=== PATIENT | female | born 1945 | race Caucasian/White ===

== ENCOUNTER → 2016-08-10 | Outpatient (CLI) | payer MEDICARE, OTHER | LOC: RAD 14:59 | PROVIDERS: ATTEND Physician Assistant | DX: R05 Cough (principal) | CPT/HCPCS: 71020 ==

== ENCOUNTER → 2016-11-20 | Outpatient (CLI) | payer MEDICARE, OTHER | LOC: OD 14:58 | PROVIDERS: ATTEND Physician Assistant | DX: M54.2 Cervicalgia (principal); M47.892 Other spondylosis, cervical region | CPT/HCPCS: 72050 ==

== ENCOUNTER 2016-11-30 18:28 | Inpatient (IN) | payer MEDICARE, OTHER ==
--- NOTE | 2016-11-30 18:40 | ER Document Report ---
ED GI/ - General Stated Complaint: ABDOMINAL PAIN Time seen by provider: 18:40 Mode of Arrival: Wheelchair Information source: Patient, Relative TRAVEL OUTSIDE OF THE [place] IN LAST 30 DAYS: No - HPI Patient complains to provider of: Abdominal pain Onset: Other - 4 days Timing/Duration: Persistent, Worse Quality of pain: Fullness, Pressure, Sharp, Stabbing Severity at maximum: Severe Severity in ED: Severe Pain Level: 5 Location: RLQ Associated symptoms: Nausea. denies: Fever, Vomiting Exacerbated by: Movement Relieved by: Denies Similar symptoms previously: No Recently seen / treated by doctor: Yes Notes: 11/30/16 19:01 Patient is a 71-year-old female who presents to the emergency room for complaints of right lower quadrant pain 4 days, she was actually seen as an outpatient by her primary care provider and sent for a CT scan of the abdomen and pelvis today, which shows acute appendicitis with perforation, patient was called and told to come to the emergency room for further care, she denies any vomiting, states she's had no appetite and has nothing to vomit up, denies any surgeries on the abdomen previously, states she did take a couple sips of water a proximally 15 minutes prior to coming to the emergency room Past Medical History - General Information source: Patient - Social History Smoking Status: Current Every Day Smoker Family History: Reviewed & Not Pertinent Review of Systems - Review of Systems Constitutional: No symptoms reported EENT: No symptoms reported Cardiovascular: No symptoms reported Respiratory: No symptoms reported Gastrointestinal: See HPI Genitourinary: No symptoms reported Female Genitourinary: No symptoms reported Musculoskeletal: No symptoms reported Skin: No symptoms reported Hematologic/Lymphatic: No symptoms reported Neurological/Psychological: No symptoms reported -: Yes All other systems reviewed and negative Physical Exam - General General appearance: Alert In distress: Mild - Appears in pain, appears ill - HEENT Head: Normocephalic, Atraumatic Eyes: Pale conjunctiva Extraocular movements intact: Yes Eyelashes: Normal Pupils: PERRL Mucous membranes: Dry Pharynx: Normal Neck: Normal - Respiratory Respiratory status: No respiratory distress Chest status: Nontender Breath sounds: Normal Chest palpation: Normal - Cardiovascular Rhythm: Regular Heart sounds: Normal auscultation Murmur: No - Abdominal Inspection: Normal Distension: No distension Bowel sounds: Normal Tenderness: Tender - Right lower quadrant, positive peritoneal signs, positive guarding Organomegaly: No organomegaly - Back Back: Normal, Nontender - Extremities General upper extremity: Normal inspection, Nontender, Normal color, Normal ROM , Normal temperature General lower extremity: Normal inspection, Nontender, Normal color, Normal ROM , Normal temperature, Normal weight bearing. No: Melissa's sign - Neurological Neuro grossly intact: Yes Cognition: Normal Orientation: AAOx4 [place] Coma Scale Eye Opening: Spontaneous Kyle Coma Scale Verbal: Oriented [place] Coma Scale Motor: Obeys Commands Kyle Coma Scale Total: 15 Speech: Normal Motor strength normal: LUE, RUE, LLE, RLE Sensory: Normal - Psychological Associated symptoms: Normal affect, Normal mood - Skin Skin Temperature: Warm Skin Moisture: Dry Skin Color: Pale Course - Re-evaluation Re-evalutation: 11/30/16 19:[address] scan shows acute appendicitis with perforation and periappendiceal abscess formation, patient was discussed with the surgeon who will admit for further evaluation and treatment, requested patient be started on Invanz, be kept nothing by mouth, this plan was discussed with patient and several family members who acknowledge understanding and agreement - Laboratory Result Diagrams: 11/30/16 18:44 11/30/16 18:44 - Diagnostic Test Radiology reviewed: Image reviewed, Reports reviewed - EKG Interpretation by Me EKG shows normal: Sinus rhythm Rate: Normal Rhythm: NSR - Consults Dr Swain Time consulted: 18:40 Reason for consultation: 11/30/16 18:40 Ruptured appendicitis Consulted provider: will come to ER - Transfer of Care Care transferred to following provider: Dr. Swain Discharge - Discharge Clinical Impression: Acute appendicitis with perforation and peritoneal abscess Condition: Fair Disposition: ADMITTED INPATIENT Admitting Provider: Surgicalist Unit Admitted: Surgical Floor
[2016-11-30] MEDS ORDERED: PIPERACILLIN/TAZOBACTAM 4.5 GM VIAL IV ONE (18:43)
[2016-11-30] MEDS ORDERED: MORPHINE SULFATE 10 MG/ML INJ IV ONE (18:43)
[2016-11-30] MEDS ORDERED: NORMAL SALINE 1000 ML 1,000 ML IV PRN (18:43)
[2016-11-30] MEDS ORDERED: ONDANSETRON HCL INJ/PF 4 MG/2 ML SDV IV ONE (18:43)
[2016-11-30] MEDS ORDERED: ERTAPENEM SODIUM INJ 1 GM VIAL IV ONE (18:52)
[2016-11-30 19:32] LABS: PROTHROMBIN TIME 17.2 SEC (11.4-15.4)
[2016-11-30 19:33] LABS: PARTIAL THROMBOPLASTIN TIME 38.8 SEC (23.5-35.8)
[2016-11-30 19:37] LABS: HEMATOCRIT 42.7 % (36.0-47.0); HEMOGLOBIN 14.8 g/dL (12.0-15.5); HGB HCT DIFFERENCE 1.7; MEAN CORPUSCULAR HEMOGLOBIN 31.7 pg (27.0-33.4); MEAN CORPUSCULAR HGB CONC 34.8 g/dL (32.0-36.0); MEAN CORPUSCULAR VOLUME 91 fl (80-97); RED BLOOD COUNT 4.69 10^6/uL (3.72-5.28)
[2016-11-30 19:58] LABS: BAND NEUTROPHILS % (MANUAL) 15 % (3-5); BASOPHILS % (MANUAL) 0 % (0-2); EOSINOPHILS % (MANUAL) 0 % (0-6); LYMPHOCYTES % (MANUAL) 6 % (13-45); TOTAL CELLS COUNTED 100
[2016-11-30 19:59] LABS: TOXIC GRANULATION SLIGHT
[2016-11-30 20:00] LABS: ANISOCYTOSIS SLIGHT; PLATELET CLUMPS PRESENT; POLYCHROMASIA SLIGHT
[2016-11-30] MEDS ORDERED: BUPIVACAINE HCL 0.25 % INJ/PF (2.5 MG/1 ML) 30 ML VIAL ONE (20:37)
[2016-11-30] MEDS ORDERED: FENTANYL CITRATE INJ/PF 100 MCG/2 ML AMPUL ONE ×2 (21:39→21:40)
[2016-11-30] MEDS ORDERED: MIDAZOLAM 2 MG/2 ML INJ ONE (21:40)
[2016-11-30] MEDS ORDERED: EPHEDRINE SULFATE INJ 50 MG/1 ML AMPULE ONE (21:40)
[2016-11-30] MEDS ORDERED: PROPOFOL INJ 200 MG/20 ML VIAL IV ONE (21:41)
[2016-11-30] MEDS ORDERED: ACETAMINOPHEN 100 ML IV ONE (21:41)
[2016-11-30] MEDS ORDERED: MORPHINE SULFATE 10 MG/ML INJ ONE (21:41)
[2016-11-30 22:01] LABS: ALANINE AMINOTRANSFERASE 22 U/L (9-52); ALBUMIN 2.9 g/dL (3.5-5.0); ALKALINE PHOSPHATASE 56 U/L (38-126); ANION GAP 18 (5-19); ASPARTATE AMINO TRANSFERASE 22 U/L (14-36); BILIRUBIN,DIRECT 0.3 mg/dL (0.0-0.4); BILIRUBIN,TOTAL 0.4 mg/dL (0.2-1.3); BLOOD UREA NITROGEN 82 mg/dL (7-20); CALCIUM 9.5 mg/dL (8.4-10.2); CARBON DIOXIDE 22 mmol/L (22-30); CHLORIDE 94 mmol/L (98-107); CREATININE RESULT 2.19 mg/dL (0.52-1.25); GLUCOSE 98 mg/dL (75-110); LIPASE 158.2 U/L (23-300); POTASSIUM 3.1 mmol/L (3.6-5.0); SODIUM 133.5 mmol/L (137-145); TOTAL PROTEIN 5.8 g/dL (6.3-8.2)
[2016-11-30] MEDS ORDERED: OXYCODONE-ACETAMINOPHEN 5-325 MG TABLET PO PRN ×2 (22:37)
[2016-11-30] MEDS ORDERED: DIPHENHYDRAMINE HCL 50 MG/ML VIAL IV PRN (22:37)
[2016-11-30] MEDS ORDERED: FENTANYL CITRATE INJ/PF 100 MCG/2 ML AMPUL IV PRN ×2 (22:37)
[2016-11-30] MEDS ORDERED: MORPHINE SULFATE 10 MG/ML INJ IV PRN (22:37)
[2016-11-30] MEDS ORDERED: MEPERIDINE HCL/PF INJ 25 MG/1 ML DISP.SYRIN IV PRN (22:37)
[2016-11-30] MEDS ORDERED: BUPIVACAINE HCL 0.25 % INJ/PF (2.5 MG/1 ML) 30 ML VIAL INJ ONE ×2 (22:46)
[2016-12-01] MEDS ORDERED: ALBUTEROL SULFATE 0.083% NEB 2.5 MG/3 ML AMPUL NEB PRN (00:53)
[2016-12-01] MEDS ORDERED: DEXTROSE 40% GEL 15 GM TUBE PO PRN ×2 (00:53)
[2016-12-01] MEDS ORDERED: GLUCAGON,HUMAN RECOMB 1 MG INJ SUBCUT PRN (00:53)
[2016-12-01] MEDS ORDERED: DEXTROSE 50%-WATER 25 GM/50 ML DISP.SYRIN IV PRN ×2 (00:53)
[2016-12-01] MEDS ORDERED: PHARMACY COMMUNICATION ORDER MC NR (01:00)
[2016-12-01] MEDS ORDERED: DEXTROSE 5%-WATER 250 ML with NOREPINEPHRINE BITARTRATE 4 MG IV PRN ×2 (01:50)
[2016-12-01] MEDS ORDERED: NOREPINEPHRINE BITARTRATE INJ/PF 4 MG/4 ML SDV IV ONE (02:19)
[2016-12-01] MEDS: NORMAL SALINE 1000 ML 1,000 ML IV PRN ×2 (02:51→11:20)
[2016-12-01 06:00] LABS: HEMATOCRIT 39.2 % (36.0-47.0); HEMOGLOBIN 13.5 g/dL (12.0-15.5); HGB HCT DIFFERENCE 1.3; MEAN CORPUSCULAR HEMOGLOBIN 31.8 pg (27.0-33.4); MEAN CORPUSCULAR HGB CONC 34.5 g/dL (32.0-36.0); MEAN CORPUSCULAR VOLUME 92 fl (80-97); RED BLOOD COUNT 4.25 10^6/uL (3.72-5.28); RED CELL DISTRIBUTION WIDTH 14.3 % (11.5-14.0); WHITE BLOOD COUNT 9.2 10^3/uL (4.0-10.5)
[2016-12-01 06:22] LABS: BAND NEUTROPHILS % (MANUAL) 14 % (3-5); BASOPHILS % (MANUAL) 0 % (0-2); EOSINOPHILS % (MANUAL) 0 % (0-6); LYMPHOCYTES % (MANUAL) 2 % (13-45); NUCLEATED RED BLOOD CELLS 1 /100 WBC (0); TOTAL CELLS COUNTED 100
[2016-12-01 06:23] LABS: ANISOCYTOSIS SLIGHT; POLYCHROMASIA SLIGHT; TOXIC GRANULATION 1+; TOXIC VACUOLATION PRESENT
--- NOTE | 2016-12-01 07:32 | PDOC PROGRESS REPORT ---
Subjective Progress Note for:: 12/01/16 Subjective:: Patient appears very comfortable and is alert. States that her abdominal pain is markedly improved from preoperatively. Physical Exam Vital Signs: Temp Pulse Resp BP Pulse Ox 97.6 F 65 10 L 97/59 L 98 12/01/16 05:19 12/01/16 03:52 12/01/16 06:37 12/01/16 06:37 12/01/16 06:37 Intake & Output 11/30/16 12/01/16 12/02/16 06:59 06:59 06:59 Output Total 305 Balance -305 Weight 52.2 kg General appearance: PRESENT: no acute distress, cooperative Respiratory exam: PRESENT: clear to auscultation eulogio Cardiovascular exam: PRESENT: RRR GI/Abdominal exam: PRESENT: other - Soft, moderately distended, diffuse abdominal tenderness without peritoneal signs right lower quadrant tenderness is markedly improved from her preoperative evaluation. Results Laboratory Results: 12/01/16 05:44 12/01/16 05:44 WBC 9.2 RBC 4.25 Hgb 13.5 Hct 39.2 MCV 92 MCH 31.8 MCHC 34.5 RDW 14.3 H Plt Count 235 Seg Neutrophils % Not Reportable Lymphocytes % Not Reportable Monocytes % Not Reportable Eosinophils % Not Reportable Basophils % Not Reportable Absolute Neutrophils Not Reportable Absolute Lymphocytes Not Reportable Absolute Monocytes Not Reportable Absolute Eosinophils Not Reportable Absolute Basophils Not Reportable Impressions: Chest X-Ray 11/30/16 18:34 IMPRESSION: COPD. NO ACUTE RADIOGRAPHIC FINDING IN THE CHEST. KUB X-Ray 12/01/16 00:59 IMPRESSION: Postoperative ileus. Assessment & Plan - Diagnosis (1) Acute appendicitis with perforation and peritoneal abscess Is this a current diagnosis for this admission?: YesPlan: Looks much better postoperatively. Requiring levofed for hypotension. But overall markedly improved with good urine output, decreased BUN and creatinine and much improved exam. Will try to wean off of her levofed. Ambulate patient. Await bowel function.
[2016-12-01] MEDS: ENOXAPARIN SODIUM INJ 30 MG/0.3 ML DISP.SYRIN SUBCUT SCH (07:54)
[2016-12-01] MEDS ORDERED: METOPROLOL TARTRATE PF/INJ 5 MG/5 ML SDV IV PRN ×2 (09:01→12:58)
[2016-12-01] MEDS: IPRATROPIUM/ALBUTEROL 0.5-2.5 MG/3 ML AMPUL NEB PRN (09:06)
--- NOTE | 2016-12-01 09:36 | EKG REPORT ---
SEVERITY:- OTHERWISE NORMAL ECG - SINUS OR ECTOPIC ATRIAL RHYTHM : Confirmed by: Sha Davis 01-Dec-2016 09:35:19
[2016-12-01] MEDS: FAMOTIDINE INJ/PF 20 MG/2 ML SDV IV SCH ×2 (10:55→22:10)
[2016-12-01] MEDS: NICOTINE 14 MG/24 HR PATCH.TD24 TD SCH (10:55)
--- NOTE | 2016-12-01 12:54 | PDOC CONSULTATION ---
Consultation Consult reason:: For medical management History of Present Illness Admission Date/PCP: 12/01/16 00:53 PAMELA DYE MD History of Present Illness: ALBINA MLULER is a 71 year old female This is a 71-year-old female with a history of the chronic obstructive pulmonary disease and a chronic smoker and a history of the hypertensions and osteoarthritis basically came to the office yesterday with a complaint of abdominal pain for the last 3 days with some loss of appetite and a CT scan of the abdomen and pelvis was performed stat and so still possible appendicitis with the rupture and peritonitisAnd patient was sent to the emergency department and admitted by the surgery and underwent for the laparotomy and currently doing wellPatient's currently on the levo drip for the low blood pressures but patients denied any chest pain denied any shortness of the breath and the patient's pain is under well control Patients denied any history of the heart disease denied any history of any stroke Past Medical History Cardiac Medical History: Denies: None, Atrial Fibrillation, Congestive Heart Failure, Coronary Artery Disease, DVT, Myocardial Infarction, Hyperlipidema, Hypertension, Peripheral Vascular Disease, Pulmonary Embolism, Heart Murmur, Other Pulmonary Medical History: Reports: Bronchitis, Chronic Obstructive Pulmonary Disease (COPD) Neurological Medical History: Denies: None, Hemorrhagic CVA, Ischemic CVA, Migraine, Multiple Sclerosis, Seizures, Other Endocrine Medical History: Denies: None, Diabetes Mellitus Type 1, Diabetes Mellitus Type 2, Gestational Diabetes, Hyperthyroidism, Hypothyroidism, Obesity, Other Renal/ Medical History: Denies: None, Chronic Kidney Disease, End Stage Renal Disease, Nephrolithiasis, Other Malignancy Medical History: Denies: None, Bone Cancer, Brain Cancer, Breast Cancer, Cervical Cancer, Colorectal Cancer, Leukemia, Liver Cancer, Lung Cancer, Lymphoma, Ovarian Cancer , Pancreatic Cancer, Renal (Kidney) Cancer, Skin Cancer, Other GI Medical History: Denies: None, Cirrhosis, Crohn's Disease, Diverticulitis, Gastroesophageal Reflux Disease, Hepatitis, Hiatal Hernia, Peptic Ulcer Disease, Ulcerative Colitis, Other Musculoskeltal Medical History: Reports: Arthritis Social History Smoking Status: Current Every Day Smoker - Advance Directive Resuscitation Status: Full Code Family History Family History: Reviewed & Not Pertinent Parental Family History Reviewed: Yes Children Family History Reviewed: Yes Sibling(s) Family History Reviewed.: Yes Medication/Allergy Home Medications: Alendronate Sodium [Fosamax Inchweekly Inch 35 Mg Tablet] 35 mg PO Q7D Aspirin [Aspirin 81 mg Chewable Tablet] 81 mg PO DAILY 12/01/16 Fluticasone/Salmeterol [Advair 100-50 Diskus 28 Dose] 1 inh IH Q12 12/01/16 Hydrochlorothiazide [Hydrodiuril 12.5 mg Capsule] 12.5 mg PO DAILY 12/01/16 Simvastatin [Zocor 20 mg Tablet] 20 mg PO QHS 12/01/16 Tramadol HCl [Ultram 50 mg Tablet] 50 mg PO BIDP PRN 12/01/16 Allergies/Adverse Reactions: No Known Allergies Allergy (Unverified 11/30/16 19:28) Review of Systems Constitutional: ABSENT: chills, fever(s), headache(s), weight gain, weight loss Eyes: ABSENT: visual disturbances Ears: ABSENT: hearing changes Cardiovascular: ABSENT: chest pain, dyspnea on exertion, edema, orthropnea, palpitations Respiratory: ABSENT: cough, hemoptysis Gastrointestinal: PRESENT: abdominal pain Genitourinary: ABSENT: dysuria, hematuria Musculoskeletal: ABSENT: joint swelling Integumentary: ABSENT: rash, wounds Neurological: ABSENT: abnormal gait, abnormal speech, confusion, dizziness, focal weakness, syncope Psychiatric: ABSENT: anxiety, depression, homidical ideation, suicidal ideation Endocrine: ABSENT: cold intolerance, heat intolerance, menstrual abnormalities, polydipsia, polyuria Hematologic/Lymphatic: ABSENT: easy bleeding, easy bruising, lymphadenopathy Physical Exam Vital Signs: Temp Pulse Resp BP Pulse Ox 99.5 F 67 10 L 108/69 99 12/01/16 08:00 12/01/16 09:06 12/01/16 09:06 12/01/16 08:00 12/01/16 09:06 Intake & Output 11/30/16 12/01/16 12/02/16 06:59 06:59 06:59 Output Total 305 150 Balance -305 -150 Weight 52.2 kg General appearance: PRESENT: no acute distress, well-developed, well-nourished Head exam: PRESENT: atraumatic, normocephalic Eye exam: PRESENT: conjunctiva pink, EOMI, PERRLA. ABSENT: scleral icterus Ear exam: PRESENT: normal external ear exam Mouth exam: PRESENT: moist, tongue midline Neck exam: PRESENT: full ROM. ABSENT: carotid bruit, JVD, lymphadenopathy, thyromegaly Respiratory exam: PRESENT: clear to auscultation eulogio Cardiovascular exam: PRESENT: RRR. ABSENT: diastolic murmur, rubs, systolic murmur Pulses: PRESENT: normal dorsalis pedis pul, +2 pedal pulses bilateral Vascular exam: PRESENT: normal capillary refill GI/Abdominal exam: PRESENT: diminished bowel sounds Additonal comments: Status post surgery dressing is intact Rectal exam: PRESENT: deferred Extremities exam: ABSENT: full ROM, left AKA, right AKA, left BKA, right BKA, calf tenderness, joint swelling, pedal edema, tenderness, other Neurological exam: PRESENT: alert, awake, oriented to person, oriented to place , oriented to time, oriented to situation Psychiatric exam: PRESENT: appropriate affect, normal mood. ABSENT: homicidal ideation, suicidal ideation Skin exam: PRESENT: dry, intact, warm. ABSENT: cyanosis, rash Results Laboratory Results: 12/01/16 05:44 12/01/16 05:44 WBC 9.2 RBC 4.25 Hgb 13.5 Hct 39.2 MCV 92 MCH 31.8 MCHC 34.5 RDW 14.3 H Plt Count 235 Seg Neutrophils % Not Reportable Lymphocytes % Not Reportable Monocytes % Not Reportable Eosinophils % Not Reportable Basophils % Not Reportable Absolute Neutrophils Not Reportable Absolute Lymphocytes Not Reportable Absolute Monocytes Not Reportable Absolute Eosinophils Not Reportable Absolute Basophils Not Reportable Impressions: Chest X-Ray 11/30/16 18:34 IMPRESSION: COPD. NO ACUTE RADIOGRAPHIC FINDING IN THE CHEST. KUB X-Ray 12/01/16 00:59 IMPRESSION: Postoperative ileus. Assessment & Plan - Diagnosis (1) Acute appendicitis with perforation and peritoneal abscess Is this a current diagnosis for this admission?: YesPlan: Follow with the general surgeryStatus post laparotomy day 1 (2) Sepsis Qualifiers: Sepsis type: sepsis due to unspecified organism Qualified Code(s): A41.9 - Sepsis, unspecified organism Is this a current diagnosis for this admission?: YesPlan: Due to the rupture appendicitis continues to current IV antibiotic follow with the culture and a continues to IV fluid (3) Chronic obstructive pulmonary disease Qualifiers: Emphysema type: unspecified Is this a current diagnosis for this admission?: YesPlan: Continues to DuoNeb nebulizers every 6 hours (4) Hypertension Qualifiers: Hypertension type: essential hypertension Qualified Code(s): I10 - Essential (primary) hypertension Is this a current diagnosis for this admission?: YesPlan: Currently hold all blood pressure medications while running low (5) Osteoarthritis Qualifiers: Osteoarthritis location: unspecified site Is this a current diagnosis for this admission?: YesPlan: Continues in the pain medications (6) Smoker Plan: Start him a nicotine patch (7) Hypotension Qualifiers: Hypotension type: unspecified hypotension type Qualified Code(s): I95.9 - Hypotension, unspecified Is this a current diagnosis for this admission?: YesPlan: Due to the sepsis continues to IV fluid continues to live drips and continues the broad-spectrum IV antibiotic (8) Acute renal failure Qualifiers: Acute renal failure type: unspecified Qualified Code(s): N17.9 - Acute kidney failure, unspecified Is this a current diagnosis for this admission?: YesPlan: Due to the sepsis continues to IV fluid and wait for the culture and continues to IV antibiotic - Time Time Spent: 30 to 50 Minutes Medications reviewed and adjusted accordingly: Yes Anticipated discharge: Home Within: Other - Inpatient Certification Medical Necessity: Need For IV Fluids, Need for IV Antibiotics Post Hospital Care: D/C Furnace Cooler Documentation - Plan Summary Plan Summary: Currently continues on IV antibiotic IV fluid follow-up with the general surgery and follow all cultures and currently hold all blood pressure medications and the DuoNeb nebulizer treatment. Review all medications and all labs and discussed with the ICU nurses and discussed with the patient's daughter and the patient about the patient's current conditions
[2016-12-01] MEDS: MORPHINE SULFATE 10 MG/ML INJ IV PRN ×2 (14:31→19:01)
[2016-12-01] MEDS ORDERED: DEXAMETHASONE SOD PHOSPHATE INJ 4 MG/1 ML VIAL ONE (15:51)
[2016-12-01] MEDS ORDERED: SUCCINYLCHOLINE CHLORIDE INJ 200 MG/10 ML VIAL ONE (15:51)
[2016-12-01] MEDS ORDERED: LIDOCAINE 2% INJ-PF (20 MG/ML) 10 ML AMPUL ONE (15:51)
[2016-12-01] MEDS ORDERED: NEOSTIGMINE METHYLSULFATE 10 MG/10 ML VIAL ONE (15:51)
[2016-12-01] MEDS ORDERED: GLYCOPYRROLATE INJ 0.4 MG/2 ML VIAL ONE (15:51)
[2016-12-01] MEDS ORDERED: ROCURONIUM BROMIDE INJ 50 MG/5 ML VIAL IV ONE (15:51)
[2016-12-01] MEDS ORDERED: ONDANSETRON HCL INJ/PF 4 MG/2 ML SDV ONE (15:51)
[2016-12-01] MEDS ORDERED: PHENYLEPHRINE HCL INJ/PF 10 MG/1 ML SDV ONE (15:51)
[2016-12-01] MEDS ORDERED: ERTAPENEM SODIUM 1 GM in NORMAL SALINE 50 ML IV SCH (18:00)
[2016-12-01] MEDS: ERTAPENEM SODIUM 0.5 GM in NORMAL SALINE 50 ML IV SCH (18:52)
[2016-12-02] MEDS: MORPHINE SULFATE 10 MG/ML INJ IV PRN ×4 (03:31→21:50)
[2016-12-02 04:19] LABS: ANION GAP 15 (5-19); CALCIUM 8.1 mg/dL (8.4-10.2); CARBON DIOXIDE 21 mmol/L (22-30); CHLORIDE 105 mmol/L (98-107); CREATININE RESULT 0.84 mg/dL (0.52-1.25); GLUCOSE 81 mg/dL (75-110); MAGNESIUM 1.8 mg/dL (1.6-2.3); POTASSIUM 3.3 mmol/L (3.6-5.0); SODIUM 141.1 mmol/L (137-145)
[2016-12-02 04:31] LABS: BLOOD UREA NITROGEN 51 mg/dL (7-20)
[2016-12-02 04:38] LABS: ABSOLUTE LYMPHOCYTES (AUTO) 0.8 10^3/uL (0.5-4.7); ABSOLUTE NEUT (AUTO) 5.9 10^3/uL (1.7-8.2); BASOPHILS % (AUTO) 0.1 % (0-2); EOSINOPHILS % (AUTO) 0.1 % (0-6); HEMATOCRIT 35.8 % (36.0-47.0); HEMOGLOBIN 12.2 g/dL (12.0-15.5); HGB HCT DIFFERENCE 0.8; LYMPHOCYTES % (AUTO) 10.7 % (13-45); MEAN CORPUSCULAR HEMOGLOBIN 31.2 pg (27.0-33.4); MEAN CORPUSCULAR HGB CONC 33.9 g/dL (32.0-36.0); MEAN CORPUSCULAR VOLUME 92 fl (80-97); MONOCYTES % (AUTO) 13.4 % (3-13); RED CELL DISTRIBUTION WIDTH 14.2 % (11.5-14.0); SEGMENTED NEUTROPHILS % (AUTO) 75.7 % (42-78); WHITE BLOOD COUNT 7.8 10^3/uL (4.0-10.5)
[2016-12-02] MEDS: ENOXAPARIN SODIUM INJ 30 MG/0.3 ML DISP.SYRIN SUBCUT SCH (09:04)
[2016-12-02] MEDS: FAMOTIDINE INJ/PF 20 MG/2 ML SDV IV SCH ×2 (09:05→21:48)
[2016-12-02] MEDS: NICOTINE 14 MG/24 HR PATCH.TD24 TD SCH (09:06)
[2016-12-02] MEDS ORDERED: POTASSI CL 20 MEQ/50 ML RIDER 50 ML IV ONE (10:45)
--- NOTE | 2016-12-02 12:03 | PROGRESS NOTE E ---
Progress Note NAME: ALBINA MULLER : 1945 AGE: 71Y DATE: 12/02/2016 ROOM: 605 SUBJECTIVE: The patient is doing well in the intensive care unit. She has not passed any flatus yet, but she has good bowel sounds. I will discontinue the NG tube but keep n.p.o. today. She will be transferred out of the unit to go to the [facility]. Her potassium is 3.3 and she is going to get a K-rider. We will continue her on the IV antibiotics and we will get her out of bed. OBJECTIVE: Her abdomen is soft and just slightly distended, and the incision is clean and dry. As I said, has some good bowel sounds. DICTATING PHYSICIAN: TOD NOBLE M.D. [id number] PHY#: [id number] ID: [id number] JOB#: [id number] ACCT: [id number] cc: >
[2016-12-02] MEDS: NORMAL SALINE 1000 ML 1,000 ML IV PRN ×2 (12:39→21:49)
[2016-12-02] MEDS: ERTAPENEM SODIUM 0.5 GM in NORMAL SALINE 50 ML IV SCH (17:22)
--- NOTE | 2016-12-02 18:00 | PDOC PROGRESS REPORT ---
Subjective Progress Note for:: 12/02/16 Subjective:: She was admitted because of a perforated appendix, recovering in ICU no new complaint Physical Exam Vital Signs: Temp Pulse Resp BP Pulse Ox 98.7 F 65 18 98/54 L 95 12/02/16 16:57 12/02/16 16:57 12/02/16 16:57 12/02/16 16:57 12/02/16 16:57 Intake & Output 12/01/16 12/02/16 12/03/16 06:59 06:59 06:59 Intake Total 1570 Output Total 305 2350 750 Balance -305 -2350 820 Weight 52.2 kg 54.9 kg General appearance: PRESENT: no acute distress Eye exam: PRESENT: PERRLA Respiratory exam: PRESENT: clear to auscultation eulogio Cardiovascular exam: PRESENT: +S1, +S2 GI/Abdominal exam: PRESENT: soft Neurological exam: PRESENT: alert Results Laboratory Results: 12/02/16 03:49 12/02/16 03:49 12/02/16 12/02/16 03:49 03:49 WBC 7.8 RBC 3.90 Hgb 12.2 Hct 35.8 L MCV 92 MCH 31.2 MCHC 33.9 RDW 14.2 H Plt Count 210 Seg Neutrophils % 75.7 Lymphocytes % 10.7 L Monocytes % 13.4 H Eosinophils % 0.1 Basophils % 0.1 Absolute Neutrophils 5.9 Absolute Lymphocytes 0.8 Absolute Monocytes 1.0 Absolute Eosinophils 0.0 Absolute Basophils 0.0 Sodium 141.1 Potassium 3.3 L Chloride 105 Carbon Dioxide 21 L Anion Gap 15 BUN 51 H D Creatinine 0.84 Est GFR ( Amer) > 60 Est GFR (Non-Af Amer) > 60 Glucose 81 Calcium 8.1 L Magnesium 1.8 Impressions: KUB X-Ray 12/01/16 00:59 IMPRESSION: Postoperative ileus. Chest X-Ray 12/02/16 07:00 IMPRESSION: Mild increase subsegmental atelectasis is present at both lung bases. Assessment & Plan - Diagnosis (1) Acute appendicitis with perforation and peritoneal abscess Is this a current diagnosis for this admission?: Yes (2) Acute renal failure Qualifiers: Acute renal failure type: unspecified Qualified Code(s): N17.9 - Acute kidney failure, unspecified Is this a current diagnosis for this admission?: Yes (3) Chronic obstructive pulmonary disease Qualifiers: Emphysema type: unspecified Is this a current diagnosis for this admission?: Yes (4) Hypertension Qualifiers: Hypertension type: essential hypertension Qualified Code(s): I10 - Essential (primary) hypertension Is this a current diagnosis for this admission?: Yes (5) Hypotension Qualifiers: Hypotension type: unspecified hypotension type Qualified Code(s): I95.9 - Hypotension, unspecified Is this a current diagnosis for this admission?: Yes (6) Osteoarthritis Qualifiers: Osteoarthritis location: unspecified site Is this a current diagnosis for this admission?: Yes (7) Sepsis Qualifiers: Sepsis type: sepsis due to unspecified organism Qualified Code(s): A41.9 - Sepsis, unspecified organism Is this a current diagnosis for this admission?: Yes
[2016-12-03] MEDS: MORPHINE SULFATE 10 MG/ML INJ IV PRN ×3 (05:18→19:51)
[2016-12-03] MEDS: NORMAL SALINE 1000 ML 1,000 ML IV PRN ×2 (05:21→14:56)
[2016-12-03 05:38] LABS: ANION GAP 14 (5-19); BLOOD UREA NITROGEN 28 mg/dL (7-20); CALCIUM 7.8 mg/dL (8.4-10.2); CARBON DIOXIDE 21 mmol/L (22-30); CHLORIDE 111 mmol/L (98-107); CREATININE RESULT 0.64 mg/dL (0.52-1.25); GLUCOSE 63 mg/dL (75-110); SODIUM 145.6 mmol/L (137-145)
[2016-12-03] MEDS: POTASSIUM CHLORIDE 20 MEQ/50 ML RTU IV SCH ×2 (07:19→08:41)
[2016-12-03] MEDS: ENOXAPARIN SODIUM INJ 30 MG/0.3 ML DISP.SYRIN SUBCUT SCH (08:36)
[2016-12-03] MEDS: NICOTINE 14 MG/24 HR PATCH.TD24 TD SCH (09:49)
[2016-12-03] MEDS: FAMOTIDINE INJ/PF 20 MG/2 ML SDV IV SCH ×2 (09:49→22:59)
--- NOTE | 2016-12-03 16:14 | PROGRESS NOTE E ---
Progress Note NAME: ALBINA MULLER : 1945 AGE: 71Y DATE: 12/03/2016 ROOM: [facility] SUBJECTIVE: She is postop day #3 status post appendectomy by Dr. Swain. Today the patient is back to her regular room in the intensive care unit. She is hungry and she has some flatus. We will start her on p.o. diet of clear liquids. Progress as tolerated. Continue her on her antibiotics though her white count has been normal since yesterday. cholecystectomy. DICTATING PHYSICIAN: TOD NOBLE M.D. [id number] PHY#: [id number] ID: [id number] JOB#: [id number] ACCT: [id number] cc: > MTDD
--- NOTE | 2016-12-03 17:34 | PDOC PROGRESS REPORT ---
Subjective Progress Note for:: 12/03/16 Subjective:: Patient was seen by the bedside, she was downgraded to IMCU from ICU bed, blood pressure is much improved compared to yesterday, IV fluids to be discontinued. Physical Exam Vital Signs: Temp Pulse Resp BP Pulse Ox 98.3 F 80 19 135/65 H 98 12/03/16 15:39 12/03/16 15:39 12/03/16 15:39 12/03/16 15:39 12/03/16 15:39 Intake & Output 12/02/16 12/03/16 12/04/16 06:59 06:59 06:59 Intake Total 3010 1250 Output Total 2350 1800 400 Balance -2350 1210 850 Weight 54.9 kg 52.9 kg General appearance: PRESENT: no acute distress Eye exam: PRESENT: PERRLA Respiratory exam: PRESENT: crackles Cardiovascular exam: PRESENT: +S1, +S2 GI/Abdominal exam: PRESENT: soft Results Laboratory Results: 12/02/16 03:49 12/03/16 04:08 12/03/16 04:08 Sodium 145.6 H Potassium 3.0 L* Chloride 111 H Carbon Dioxide 21 L Anion Gap 14 BUN 28 H Creatinine 0.64 Est GFR ( Amer) > 60 Est GFR (Non-Af Amer) > 60 Glucose 63 L Calcium 7.8 L Impressions: KUB X-Ray 12/01/16 00:59 IMPRESSION: Postoperative ileus. Chest X-Ray 12/02/16 07:00 IMPRESSION: Mild increase subsegmental atelectasis is present at both lung bases. Assessment & Plan - Diagnosis (1) Acute appendicitis with perforation and peritoneal abscess Is this a current diagnosis for this admission?: Yes (2) Acute renal failure Qualifiers: Acute renal failure type: unspecified Qualified Code(s): N17.9 - Acute kidney failure, unspecified Is this a current diagnosis for this admission?: Yes (3) Chronic obstructive pulmonary disease Qualifiers: Emphysema type: unspecified Is this a current diagnosis for this admission?: Yes (4) Hypertension Qualifiers: Hypertension type: essential hypertension Qualified Code(s): I10 - Essential (primary) hypertension Is this a current diagnosis for this admission?: Yes (5) Hypotension Qualifiers: Hypotension type: unspecified hypotension type Qualified Code(s): I95.9 - Hypotension, unspecified Is this a current diagnosis for this admission?: Yes (6) Osteoarthritis Qualifiers: Osteoarthritis location: unspecified site Is this a current diagnosis for this admission?: Yes (7) Sepsis Qualifiers: Sepsis type: sepsis due to unspecified organism Qualified Code(s): A41.9 - Sepsis, unspecified organism Is this a current diagnosis for this admission?: Yes - Plan Summary Plan Summary: Blood pressure is improved, no new complaint
[2016-12-03] MEDS: ERTAPENEM SODIUM 0.5 GM in NORMAL SALINE 50 ML IV SCH (18:35)
[2016-12-04 05:19] LABS: ABSOLUTE BASOPHILS # (AUTO) 0.1 10^3/uL (0.0-0.2); ABSOLUTE LYMPHOCYTES (AUTO) 1.2 10^3/uL (0.5-4.7); ABSOLUTE MONOCYTES (AUTO) 1.1 10^3/uL (0.1-1.4); ABSOLUTE NEUT (AUTO) 9.8 10^3/uL (1.7-8.2); BASOPHILS % (AUTO) 0.8 % (0-2); EOSINOPHILS % (AUTO) 0.3 % (0-6); HEMATOCRIT 38.9 % (36.0-47.0); HEMOGLOBIN 13.3 g/dL (12.0-15.5); MEAN CORPUSCULAR HEMOGLOBIN 31.2 pg (27.0-33.4); MEAN CORPUSCULAR HGB CONC 34.3 g/dL (32.0-36.0); MEAN CORPUSCULAR VOLUME 91 fl (80-97); MONOCYTES % (AUTO) 8.9 % (3-13); RED BLOOD COUNT 4.28 10^6/uL (3.72-5.28); RED CELL DISTRIBUTION WIDTH 14.3 % (11.5-14.0); WHITE BLOOD COUNT 12.2 10^3/uL (4.0-10.5)
[2016-12-04 05:37] LABS: ANION GAP 12 (5-19); BLOOD UREA NITROGEN 17 mg/dL (7-20); CALCIUM 8.1 mg/dL (8.4-10.2); CARBON DIOXIDE 24 mmol/L (22-30); CHLORIDE 110 mmol/L (98-107); CREATININE RESULT 0.56 mg/dL (0.52-1.25); GLUCOSE 82 mg/dL (75-110); POTASSIUM 3.1 mmol/L (3.6-5.0); SODIUM 146.3 mmol/L (137-145)
[2016-12-04] MEDS: ONDANSETRON HCL INJ/PF 4 MG/2 ML SDV IV PRN (08:40)
[2016-12-04] MEDS ORDERED: PIPERACILLIN/TAZOBACTAM 3.375 GM VIAL IV SCH (09:45)
[2016-12-04] MEDS ORDERED: POTASSIUM CHLORIDE 10 MEQ TABLET.SA PO SCH (10:00)
[2016-12-04] MEDS: NICOTINE 14 MG/24 HR PATCH.TD24 TD SCH (10:02)
[2016-12-04] MEDS: FAMOTIDINE INJ/PF 20 MG/2 ML SDV IV SCH ×2 (10:03→22:05)
[2016-12-04] MEDS: ENOXAPARIN SODIUM INJ 30 MG/0.3 ML DISP.SYRIN SUBCUT SCH (10:05)
[2016-12-04] MEDS: POTASSI CL 20 MEQ/50 ML RIDER 20 MEQ/50 ML RTUPB IV SCH ×2 (10:07→12:21)
--- NOTE | 2016-12-04 10:44 | PDOC PROGRESS REPORT ---
Subjective Progress Note for:: 12/04/16 Subjective:: Patient is currently doing fair patient still feeling little bit weak. Patient start doing the soft diet per surgery. Patient's denied any nausea no vomiting. Patient's denied any chest pain denied any shortness of the breath. No fever Physical Exam Vital Signs: Temp Pulse Resp BP Pulse Ox 98.4 F 78 19 143/63 H 95 12/04/16 07:55 12/04/16 07:55 12/04/16 07:55 12/04/16 07:55 12/04/16 09:25 Intake & Output 12/03/16 12/04/16 12/05/16 06:59 06:59 06:59 Intake Total 3010 1691 Output Total 1800 1500 Balance 1210 191 Weight 52.9 kg 54.5 kg General appearance: PRESENT: no acute distress, well-developed, well-nourished Head exam: PRESENT: atraumatic, normocephalic Eye exam: PRESENT: conjunctiva pink, EOMI, PERRLA. ABSENT: scleral icterus Ear exam: PRESENT: normal external ear exam Mouth exam: PRESENT: moist, tongue midline Neck exam: PRESENT: full ROM. ABSENT: carotid bruit, JVD, lymphadenopathy, thyromegaly Respiratory exam: PRESENT: clear to auscultation eulogio Cardiovascular exam: PRESENT: RRR. ABSENT: diastolic murmur, rubs, systolic murmur Pulses: PRESENT: normal dorsalis pedis pul, +2 pedal pulses bilateral Vascular exam: PRESENT: normal capillary refill GI/Abdominal exam: PRESENT: normal bowel sounds, soft Additonal comments: Surgical dressing is intact Rectal exam: PRESENT: deferred Neurological exam: PRESENT: alert, awake, oriented to person, oriented to place , oriented to time, oriented to situation, CN II-XII grossly intact. ABSENT: motor sensory deficit Psychiatric exam: PRESENT: appropriate affect, normal mood. ABSENT: homicidal ideation, suicidal ideation Skin exam: PRESENT: dry, intact, warm. ABSENT: cyanosis, rash Results Laboratory Results: 12/04/16 04:54 12/04/16 04:54 12/04/16 12/04/16 04:54 04:54 WBC 12.2 H RBC 4.28 Hgb 13.3 Hct 38.9 MCV 91 MCH 31.2 MCHC 34.3 RDW 14.3 H Plt Count 244 Seg Neutrophils % 80.0 H Lymphocytes % 10.0 L Monocytes % 8.9 Eosinophils % 0.3 Basophils % 0.8 Absolute Neutrophils 9.8 H Absolute Lymphocytes 1.2 Absolute Monocytes 1.1 Absolute Eosinophils 0.0 Absolute Basophils 0.1 Sodium 146.3 H Potassium 3.1 L Chloride 110 H Carbon Dioxide 24 Anion Gap 12 BUN 17 Creatinine 0.56 Est GFR ( Amer) > 60 Est GFR (Non-Af Amer) > 60 Glucose 82 Calcium 8.1 L Impressions: KUB X-Ray 12/01/16 00:59 IMPRESSION: Postoperative ileus. Chest X-Ray 12/04/16 00:00 IMPRESSION: There is subsegmental atelectasis in the lung bases. A limited right lower lobe pneumonia cannot be ruled out. Assessment & Plan - Diagnosis (1) Acute appendicitis with perforation and peritoneal abscess Is this a current diagnosis for this admission?: YesPlan: Status post surgery currently on IV antibiotic (2) Sepsis Qualifiers: Sepsis type: sepsis due to unspecified organism Qualified Code(s): A41.9 - Sepsis, unspecified organism Is this a current diagnosis for this admission?: YesPlan: Afebrile continues to IV antibiotic may be a consider to start on the Levaquin p.o. on the discharge which is sensitive to all organisms (3) Chronic obstructive pulmonary disease Qualifiers: Emphysema type: unspecified Is this a current diagnosis for this admission?: YesPlan: Continues to nebulizer treatment currently all stable (4) Hypertension Qualifiers: Hypertension type: essential hypertension Qualified Code(s): I10 - Essential (primary) hypertension Is this a current diagnosis for this admission?: YesPlan: Patient's currently stable hold the current blood pressure medicine at home (5) Osteoarthritis Qualifiers: Osteoarthritis location: unspecified site Is this a current diagnosis for this admission?: YesPlan: Continues in the pain medications (6) Smoker Plan: Currently on nicotine patch (7) Hypotension Qualifiers: Hypotension type: unspecified hypotension type Qualified Code(s): I95.9 - Hypotension, unspecified Is this a current diagnosis for this admission?: YesPlan: Resolved from the sepsis (8) Acute renal failure Qualifiers: Acute renal failure type: unspecified Qualified Code(s): N17.9 - Acute kidney failure, unspecified Is this a current diagnosis for this admission?: YesPlan: All resolving from the sepsis still low potassiums replaced k rider - Time Time Spent with patient: 15-24 minutes Medications reviewed and adjusted accordingly: Yes Anticipated discharge: Other Within: Other - Inpatient Certification Medical Necessity: Need Close Monitoring Due to Risk of Patient Decompensation, Need For IV Fluids Post Hospital Care: D/C Certified Health Education Specialist Documentation - Plan Summary Plan Summary: From medical standpoint patient's currently stable continues the antibiotic and follow with the surgery otherwise patient's medical problem is all stable
[2016-12-04] MEDS: PIPERACILLIN SODIUM/TAZOBACTAM 3.375 GM in NORMAL SALINE 100 ML IV SCH ×3 (14:19→23:49)
[2016-12-04] MEDS: MORPHINE SULFATE 10 MG/ML INJ IV PRN (14:37)
[2016-12-05] MEDS: MORPHINE SULFATE 10 MG/ML INJ IV PRN ×3 (02:33→21:30)
[2016-12-05] MEDS: ONDANSETRON HCL INJ/PF 4 MG/2 ML SDV IV PRN (02:38)
[2016-12-05 05:05] LABS: ABSOLUTE BASOPHILS # (AUTO) 0.1 10^3/uL (0.0-0.2); ABSOLUTE EOSINOPHILS # (AUTO) 0.1 10^3/uL (0.0-0.6); ABSOLUTE LYMPHOCYTES (AUTO) 1.2 10^3/uL (0.5-4.7); ABSOLUTE MONOCYTES (AUTO) 1.1 10^3/uL (0.1-1.4); ABSOLUTE NEUT (AUTO) 14.2 10^3/uL (1.7-8.2); BASOPHILS % (AUTO) 0.6 % (0-2); EOSINOPHILS % (AUTO) 0.4 % (0-6); HEMATOCRIT 36.8 % (36.0-47.0); HEMOGLOBIN 12.5 g/dL (12.0-15.5); HGB HCT DIFFERENCE 0.7; LYMPHOCYTES % (AUTO) 7.2 % (13-45); MEAN CORPUSCULAR HEMOGLOBIN 30.9 pg (27.0-33.4); MEAN CORPUSCULAR VOLUME 91 fl (80-97); MONOCYTES % (AUTO) 6.6 % (3-13); RED BLOOD COUNT 4.05 10^6/uL (3.72-5.28); RED CELL DISTRIBUTION WIDTH 14.4 % (11.5-14.0); SEGMENTED NEUTROPHILS % (AUTO) 85.2 % (42-78); WHITE BLOOD COUNT 16.7 10^3/uL (4.0-10.5)
[2016-12-05 05:20] LABS: ANION GAP 13 (5-19); BLOOD UREA NITROGEN 13 mg/dL (7-20); CALCIUM 7.7 mg/dL (8.4-10.2); CARBON DIOXIDE 26 mmol/L (22-30); CHLORIDE 107 mmol/L (98-107); CREATININE RESULT 0.53 mg/dL (0.52-1.25); GLUCOSE 84 mg/dL (75-110); POTASSIUM 3.4 mmol/L (3.6-5.0); SODIUM 146.1 mmol/L (137-145)
[2016-12-05] MEDS: PIPERACILLIN SODIUM/TAZOBACTAM 3.375 GM in NORMAL SALINE 100 ML IV SCH ×4 (05:20→23:20)
[2016-12-05] MEDS: NICOTINE 14 MG/24 HR PATCH.TD24 TD SCH (09:24)
[2016-12-05] MEDS: ENOXAPARIN SODIUM INJ 30 MG/0.3 ML DISP.SYRIN SUBCUT SCH (09:25)
[2016-12-05] MEDS: FAMOTIDINE INJ/PF 20 MG/2 ML SDV IV SCH ×2 (09:25→21:18)
[2016-12-05] MEDS: POTASSI CL 20 MEQ/D5-1/2NS 1L 1,000 ML IV PRN ×2 (09:26→21:33)
--- NOTE | 2016-12-05 09:47 | PDOC PROGRESS REPORT ---
Subjective Progress Note for:: 12/05/16 Subjective:: Patient is currently doing fair still feeling weak Patient's chest x-ray showed a questionable atelectasis versus pneumonia but patients denied any cough or any congestions Patient's antibiotic was change yesterday and the patient's denied any fever denied any abdominal pain but patient's appetite is still very poor Physical Exam Vital Signs: Temp Pulse Resp BP Pulse Ox 97.9 F 88 16 130/61 H 96 12/05/16 03:51 12/05/16 07:00 12/05/16 03:51 12/05/16 03:51 12/05/16 03:51 Intake & Output 12/04/16 12/05/16 12/06/16 06:59 06:59 06:59 Intake Total 1691 1221 Output Total 1500 25 Balance 191 1196 Weight 54.5 kg 54.5 kg General appearance: PRESENT: no acute distress, well-developed, well-nourished Head exam: PRESENT: atraumatic, normocephalic Eye exam: PRESENT: conjunctiva pink, EOMI, PERRLA. ABSENT: scleral icterus Ear exam: PRESENT: normal external ear exam Mouth exam: PRESENT: moist, tongue midline Neck exam: PRESENT: full ROM. ABSENT: carotid bruit, JVD, lymphadenopathy, thyromegaly Respiratory exam: PRESENT: clear to auscultation eulogio Cardiovascular exam: PRESENT: RRR. ABSENT: diastolic murmur, rubs, systolic murmur Pulses: PRESENT: normal dorsalis pedis pul, +2 pedal pulses bilateral Vascular exam: PRESENT: normal capillary refill GI/Abdominal exam: PRESENT: distended, normal bowel sounds, soft Additonal comments: Surgical staple intact Rectal exam: PRESENT: deferred Neurological exam: PRESENT: alert, awake, oriented to person, oriented to place , oriented to time, oriented to situation, CN II-XII grossly intact. ABSENT: motor sensory deficit Psychiatric exam: PRESENT: appropriate affect, normal mood. ABSENT: homicidal ideation, suicidal ideation Skin exam: PRESENT: dry, intact, warm. ABSENT: cyanosis, rash Results Laboratory Results: 12/05/16 04:22 12/05/16 04:22 12/05/16 12/05/16 04:22 04:22 WBC 16.7 H RBC 4.05 Hgb 12.5 Hct 36.8 MCV 91 MCH 30.9 MCHC 34.0 RDW 14.4 H Plt Count 288 Seg Neutrophils % 85.2 H Lymphocytes % 7.2 L Monocytes % 6.6 Eosinophils % 0.4 Basophils % 0.6 Absolute Neutrophils 14.2 H Absolute Lymphocytes 1.2 Absolute Monocytes 1.1 Absolute Eosinophils 0.1 Absolute Basophils 0.1 Sodium 146.1 H Potassium 3.4 L Chloride 107 Carbon Dioxide 26 Anion Gap 13 BUN 13 Creatinine 0.53 Est GFR ( Amer) > 60 Est GFR (Non-Af Amer) > 60 Glucose 84 Calcium 7.7 L Impressions: KUB X-Ray 12/01/16 00:59 IMPRESSION: Postoperative ileus. Chest X-Ray 12/04/16 00:00 IMPRESSION: There is subsegmental atelectasis in the lung bases. A limited right lower lobe pneumonia cannot be ruled out. Assessment & Plan - Diagnosis (1) Acute appendicitis with perforation and peritoneal abscess Is this a current diagnosis for this admission?: YesPlan: Continues to IV antibiotic follow with the surgery (2) Sepsis Qualifiers: Sepsis type: sepsis due to unspecified organism Qualified Code(s): A41.9 - Sepsis, unspecified organism Is this a current diagnosis for this admission?: YesPlan: Continues to IV antibiotic may be needed a CT abdomen and pelvis of the persistent elevated white count (3) Chronic obstructive pulmonary disease Qualifiers: Emphysema type: unspecified Is this a current diagnosis for this admission?: YesPlan: Continues to DuoNeb nebulizer and incentive spirometry and patient is already on antibiotic (4) Hypertension Qualifiers: Hypertension type: essential hypertension Qualified Code(s): I10 - Essential (primary) hypertension Is this a current diagnosis for this admission?: YesPlan: Currently stable (5) Osteoarthritis Qualifiers: Osteoarthritis location: unspecified site Is this a current diagnosis for this admission?: YesPlan: Continues in the pain medications (6) Smoker Plan: Currently on nicotine patch (7) Hypotension Qualifiers: Hypotension type: unspecified hypotension type Qualified Code(s): I95.9 - Hypotension, unspecified Is this a current diagnosis for this admission?: YesPlan: Resolved from the sepsis (8) Acute renal failure Qualifiers: Acute renal failure type: unspecified Qualified Code(s): N17.9 - Acute kidney failure, unspecified Is this a current diagnosis for this admission?: YesPlan: All resolving from the sepsis still low potassiums replaced k rider - Time Time Spent with patient: 15-24 minutes Medications reviewed and adjusted accordingly: Yes Anticipated discharge: Home Within: Other - Inpatient Certification Medical Necessity: Need for IV Antibiotics Post Hospital Care: D/C Casing In Line Setter Documentation - Plan Summary Plan Summary: Continues current medications follow with the surgery
--- NOTE | 2016-12-05 14:08 | PROGRESS NOTE E ---
Progress Note NAME: ALBINA MULLER : 1945 AGE: 71Y DATE: 12/05/2016 ROOM: 314 The patient is postoperative visit day four from an open appendectomy for perforated appendix. SUBJECTIVE: The patient has had minimal flatus and no bowel movement. She denies any nausea or vomiting. OBJECTIVE: The patient's abdominal incision is clean and intact without any evidence of infection. She is having minimal distention. DIAGNOSTIC DATA: White blood cell count of 17,000. Cultures from the time of surgery reveals pseudomonas. ASSESSMENT: STATUS POST OPEN APPENDECTOMY FOR PERFORATED APPENDICITIS ON POSTOPERATIVE DAY FOUR. SHE DOES HAVE A RISING WHITE BLOOD CELL COUNT WHICH IS CONCERNING FOR INTRAABDOMINAL INFECTION. SHE WAS NOT ON COVERAGE OF PSEUDOMONAS UNTIL YESTERDAY WHEN ZOSYN WAS STARTED IV. I WOULD WAIT ANOTHER DAY AND IF HER WHITE BLOOD CELL COUNT CONTINUES TO INCREASE, OBTAIN A CT SCAN OF THE ABDOMEN AND PELVIS TO RULE OUT INTRAABDOMINAL ABSCESS. PLAN: 1. Continue IV antibiotics. 2. Continue diet. 3. Follow white blood cell count. DICTATING PHYSICIAN: TAYE OWENS M.D. [id number] [id number] PHY#: [id number] ID: [id number] JOB#: [id number] ACCT: [id number] cc: >
[2016-12-06 05:15] LABS: ABSOLUTE BASOPHILS # (AUTO) 0.2 10^3/uL (0.0-0.2); ABSOLUTE LYMPHOCYTES (AUTO) 1.2 10^3/uL (0.5-4.7); ABSOLUTE NEUT (AUTO) 14.6 10^3/uL (1.7-8.2); BASOPHILS % (AUTO) 1.2 % (0-2); EOSINOPHILS % (AUTO) 0.3 % (0-6); HEMATOCRIT 38.9 % (36.0-47.0); HEMOGLOBIN 13.1 g/dL (12.0-15.5); HGB HCT DIFFERENCE 0.4; MEAN CORPUSCULAR HGB CONC 33.7 g/dL (32.0-36.0); MEAN CORPUSCULAR VOLUME 92 fl (80-97); RED BLOOD COUNT 4.23 10^6/uL (3.72-5.28); RED CELL DISTRIBUTION WIDTH 14.5 % (11.5-14.0); SEGMENTED NEUTROPHILS % (AUTO) 85.5 % (42-78); WHITE BLOOD COUNT 17.1 10^3/uL (4.0-10.5)
[2016-12-06 05:55] LABS: ANION GAP 9 (5-19); BLOOD UREA NITROGEN 10 mg/dL (7-20); CALCIUM 7.7 mg/dL (8.4-10.2); CARBON DIOXIDE 30 mmol/L (22-30); CHLORIDE 105 mmol/L (98-107); CREATININE RESULT 0.56 mg/dL (0.52-1.25); GLUCOSE 115 mg/dL (75-110); POTASSIUM 3.4 mmol/L (3.6-5.0); SODIUM 143.9 mmol/L (137-145)
[2016-12-06] MEDS: PIPERACILLIN SODIUM/TAZOBACTAM 3.375 GM in NORMAL SALINE 100 ML IV SCH ×3 (06:20→17:21)
[2016-12-06] MEDS: ONDANSETRON HCL INJ/PF 4 MG/2 ML SDV IV PRN (06:21)
[2016-12-06] MEDS ORDERED: POTASSI CL 20 MEQ/50 ML RIDER 50 ML IV ONE (08:30)
[2016-12-06] MEDS: FAMOTIDINE INJ/PF 20 MG/2 ML SDV IV SCH ×2 (09:54→21:19)
[2016-12-06] MEDS: ENOXAPARIN SODIUM INJ 30 MG/0.3 ML DISP.SYRIN SUBCUT SCH (09:54)
[2016-12-06] MEDS: NICOTINE 14 MG/24 HR PATCH.TD24 TD SCH (09:54)
[2016-12-06] MEDS ORDERED: POTASSI CL 20 MEQ/D5-1/2NS 1L 1,000 ML IV PRN (10:21)
--- NOTE | 2016-12-06 10:38 | PROGRESS NOTE E ---
Progress Note NAME: ALBINA MULLER : 1945 AGE: 71Y DATE: 12/06/2016 ROOM: 314 CHIEF COMPLAINT: The patient is almost 1 week out from an open appendectomy for perforation with peritonitis. SUBJECTIVE: The patient has had a bowel movement. She denies any significant nausea or vomiting after eating. OBJECTIVE: ABDOMEN: The patient's abdominal incision is clean without any evidence of infection. DIAGNOSTIC DATA: White blood cell count 17.1. VITAL SIGNS: Temperature 98.7, pulse 88, blood pressure 125/63. ASSESSMENT: STATUS POST OPEN APPENDECTOMY FOR A PERFORATION AND PERITONITIS. SHE IS NOW HAVING INCREASING WHITE BLOOD CELL COUNT. SHE GREW OUT PSEUDOMONAS AND IS CURRENTLY ON PIPERACILLIN. I would recommend the patient undergo a CT scan of the abdomen and pelvis to rule out intra-abdominal abscess due to her rising white count. PLAN: 1. n.p.o. 2. IV fluids. 3. IV antibiotics. 4. CT scan of the abdomen and pelvis. DICTATING PHYSICIAN: TAYE OWENS M.D. [id number] PHY#: [id number] ID: [id number] JOB#: [id number] ACCT: [id number] cc: >
--- NOTE | 2016-12-06 12:19 | PDOC PROGRESS REPORT ---
Subjective Progress Note for:: 12/06/16 Subjective:: Patient is currently doing same patients denied any chest pain denied any shortness of the breath denied any coughPatients denied any overnight fever. Patient's white count is still elevated and patient's bili is still little bit distended and the surgery follow-up with her Physical Exam Vital Signs: Temp Pulse Resp BP Pulse Ox 98.7 F 88 16 125/63 91 L 12/06/16 08:28 12/06/16 08:28 12/06/16 08:28 12/06/16 08:28 12/06/16 08:28 Intake & Output 12/05/16 12/06/16 12/07/16 06:59 06:59 06:59 Intake Total 1221 1860 Output Total 25 750 Balance 1196 1110 Weight 54.5 kg General appearance: PRESENT: no acute distress, well-developed, well-nourished Head exam: PRESENT: atraumatic, normocephalic Eye exam: PRESENT: conjunctiva pink, EOMI, PERRLA. ABSENT: scleral icterus Ear exam: PRESENT: normal external ear exam Mouth exam: PRESENT: moist, tongue midline Neck exam: PRESENT: full ROM. ABSENT: carotid bruit, JVD, lymphadenopathy, thyromegaly Cardiovascular exam: PRESENT: RRR. ABSENT: diastolic murmur, rubs, systolic murmur Pulses: PRESENT: normal dorsalis pedis pul, +2 pedal pulses bilateral Vascular exam: PRESENT: normal capillary refill GI/Abdominal exam: PRESENT: distended, normal bowel sounds, soft Additonal comments: Surgical lorin is intact Rectal exam: PRESENT: deferred Neurological exam: PRESENT: alert, awake, oriented to person, oriented to place , oriented to time, oriented to situation, CN II-XII grossly intact. ABSENT: motor sensory deficit Psychiatric exam: PRESENT: appropriate affect, normal mood. ABSENT: homicidal ideation, suicidal ideation Skin exam: PRESENT: dry, intact, warm. ABSENT: cyanosis, rash Results Laboratory Results: 12/06/16 04:47 12/06/16 04:47 12/06/16 12/06/16 04:47 04:47 WBC 17.1 H RBC 4.23 Hgb 13.1 Hct 38.9 MCV 92 MCH 31.0 MCHC 33.7 RDW 14.5 H Plt Count 336 Seg Neutrophils % 85.5 H Lymphocytes % 7.0 L Monocytes % 6.0 Eosinophils % 0.3 Basophils % 1.2 Absolute Neutrophils 14.6 H Absolute Lymphocytes 1.2 Absolute Monocytes 1.0 Absolute Eosinophils 0.0 Absolute Basophils 0.2 Sodium 143.9 Potassium 3.4 L Chloride 105 Carbon Dioxide 30 Anion Gap 9 BUN 10 Creatinine 0.56 Est GFR ( Amer) > 60 Est GFR (Non-Af Amer) > 60 Glucose 115 H Calcium 7.7 L 12/01/16 11:05 Blood Blood Culture - Final NO GROWTH IN 5 DAYS 12/01/16 09:48 Blood Blood Culture - Final NO GROWTH IN 5 DAYS Impressions: KUB X-Ray 12/01/16 00:59 IMPRESSION: Postoperative ileus. Chest X-Ray 12/04/16 00:00 IMPRESSION: There is subsegmental atelectasis in the lung bases. A limited right lower lobe pneumonia cannot be ruled out. Assessment & Plan - Diagnosis (1) Acute appendicitis with perforation and peritoneal abscess Is this a current diagnosis for this admission?: YesPlan: Continues to IV antibiotic and the surgeon ordered a CT scan (2) Sepsis Qualifiers: Sepsis type: sepsis due to unspecified organism Qualified Code(s): A41.9 - Sepsis, unspecified organism Is this a current diagnosis for this admission?: YesPlan: Continues IV antibiotic (3) Chronic obstructive pulmonary disease Qualifiers: Emphysema type: unspecified Is this a current diagnosis for this admission?: YesPlan: Continues to DuoNeb nebulizer and incentive spirometry and patient is already on antibiotic (4) Hypertension Qualifiers: Hypertension type: essential hypertension Qualified Code(s): I10 - Essential (primary) hypertension Is this a current diagnosis for this admission?: YesPlan: Currently stable (5) Osteoarthritis Qualifiers: Osteoarthritis location: unspecified site Is this a current diagnosis for this admission?: Yes (7) Hypotension Qualifiers: Hypotension type: unspecified hypotension type Qualified Code(s): I95.9 - Hypotension, unspecified Is this a current diagnosis for this admission?: Yes (8) Acute renal failure Qualifiers: Acute renal failure type: unspecified Qualified Code(s): N17.9 - Acute kidney failure, unspecified Is this a current diagnosis for this admission?: YesPlan: All resolving from the sepsis still low potassiums replaced k rider - Time Time Spent with patient: 15-24 minutes Medications reviewed and adjusted accordingly: Yes Anticipated discharge: Home Within: Other - Inpatient Certification Medical Necessity: Need Close Monitoring Due to Risk of Patient Decompensation, Need for IV Antibiotics Post Hospital Care: D/C Legal Entity Controller Documentation - Plan Summary Plan Summary: Continues to IV antibiotic follow with the surgery
[2016-12-06] MEDS: MORPHINE SULFATE 10 MG/ML INJ IV PRN (13:14)
[2016-12-06] MEDS: IPRATROPIUM/ALBUTEROL 0.5-2.5 MG/3 ML AMPUL NEB PRN (17:33)
[2016-12-07] MEDS: MORPHINE SULFATE 10 MG/ML INJ IV PRN ×3 (02:26→21:34)
[2016-12-07 05:33] LABS: ABSOLUTE BASOPHILS # (AUTO) 0.1 10^3/uL (0.0-0.2); ABSOLUTE EOSINOPHILS # (AUTO) 0.1 10^3/uL (0.0-0.6); ABSOLUTE LYMPHOCYTES (AUTO) 1.3 10^3/uL (0.5-4.7); ABSOLUTE MONOCYTES (AUTO) 1.2 10^3/uL (0.1-1.4); ABSOLUTE NEUT (AUTO) 13.7 10^3/uL (1.7-8.2); BASOPHILS % (AUTO) 0.3 % (0-2); EOSINOPHILS % (AUTO) 0.4 % (0-6); HEMATOCRIT 36.9 % (36.0-47.0); HEMOGLOBIN 12.7 g/dL (12.0-15.5); HGB HCT DIFFERENCE 1.2; LYMPHOCYTES % (AUTO) 7.7 % (13-45); MEAN CORPUSCULAR HEMOGLOBIN 31.7 pg (27.0-33.4); MEAN CORPUSCULAR HGB CONC 34.4 g/dL (32.0-36.0); MEAN CORPUSCULAR VOLUME 92 fl (80-97); MONOCYTES % (AUTO) 7.5 % (3-13); RED CELL DISTRIBUTION WIDTH 14.5 % (11.5-14.0); SEGMENTED NEUTROPHILS % (AUTO) 84.1 % (42-78); WHITE BLOOD COUNT 16.3 10^3/uL (4.0-10.5)
[2016-12-07 05:54] LABS: ANION GAP 11 (5-19); BLOOD UREA NITROGEN 7 mg/dL (7-20); CALCIUM 7.4 mg/dL (8.4-10.2); CARBON DIOXIDE 30 mmol/L (22-30); CHLORIDE 104 mmol/L (98-107); CREATININE RESULT 0.56 mg/dL (0.52-1.25); GLUCOSE 110 mg/dL (75-110); POTASSIUM 3.4 mmol/L (3.6-5.0); SODIUM 144.8 mmol/L (137-145)
[2016-12-07] MEDS: PIPERACILLIN SODIUM/TAZOBACTAM 3.375 GM in NORMAL SALINE 100 ML IV SCH ×4 (06:47→23:46)
[2016-12-07] MEDS ORDERED: POTASSI CL 20 MEQ/D5-1/2NS 1L 1,000 ML IV PRN (06:51)
[2016-12-07] MEDS ORDERED: POTASSIUM CHLORIDE 10 MEQ TABLET.SA PO ONE (08:30)
[2016-12-07] MEDS ORDERED: FUROSEMIDE INJ/PF 20 MG/2 ML SDV IV ONE (08:30)
--- NOTE | 2016-12-07 08:53 | PROGRESS NOTE E ---
Progress Note NAME: ALBINA MULLER : 1945 AGE: 71Y DATE: 12/04/2016 ROOM: 314 CHIEF COMPLAINT: The patient previously underwent an open appendectomy for perforated appendicitis with fecal peritonitis. SUBJECTIVE: No complaints of nausea or vomiting. She is passing flatus. OBJECTIVE: The patient's abdominal incision is clean without any evidence of infection. DIAGNOSTIC DATA: White blood cell count of 12, hemoglobin 13, platelets 244. Cultures grew out Pseudomonas. ASSESSMENT: Status post open appendectomy for a perforated appendicitis with fecal peritonitis. I have switched her to Zosyn as she grew out Pseudomonas out of her peritoneal fluid. PLAN: 1. Switch antibiotic to Zosyn. 2. Continue a regular diet. 3. Ambulate. 4. Cough and deep breathing. DICTATING PHYSICIAN: TAYE OWENS M.D. [id number] [id number] PHY#: [id number] ID: [id number] JOB#: [id number] ACCT: [id number] cc: >
[2016-12-07] MEDS: FAMOTIDINE INJ/PF 20 MG/2 ML SDV IV SCH ×2 (09:45→21:33)
[2016-12-07] MEDS: NICOTINE 14 MG/24 HR PATCH.TD24 TD SCH (09:46)
[2016-12-07] MEDS: ENOXAPARIN SODIUM INJ 30 MG/0.3 ML DISP.SYRIN SUBCUT SCH (09:46)
[2016-12-07] MEDS ORDERED: LEVOFLOXACIN 500 MG TABLET PO SCH (10:00)
--- NOTE | 2016-12-07 12:08 | PROGRESS NOTE E ---
Progress Note NAME: ALBINA MULLER : 1945 AGE: 71Y DATE: 12/07/2016 ROOM: 314 SUBJECTIVE: Ms. Muller is a 71-year-old female who had a ruptured appendix which was operated on approximately 1 week ago on 11/30/2016. Findings showed fecal contamination. Patient at this point is feeling somewhat better, is not nauseated. She is tolerating a regular diet and her pain is well controlled. OBJECTIVE: VITAL SIGNS: Her blood pressure is 135/72. She is afebrile at 98.5. Pulse rate is 93. Respiratory rate is 19. Her wound is healing. No sign of infection. Labs yesterday showed a white count of 16.3. It was not repeated today. She did have a CT scan on 12/05/2016 that showed no evidence of an abscess. ASSESSMENT: PERSISTENT LEUKOCYTOSIS WITH NO SIGN OF INFECTION. PLAN: To continue following the white count with physical exam for another day or 2. If there continues to be no sign of localized infection, we will transition to oral antibiotics and plan on discharging her. DICTATING PHYSICIAN: KELLEN NGO M.D. [id number] PHY#: [id number] ID: [id number] JOB#: [id number] ACCT: [id number] cc: >
[2016-12-07] MEDS ORDERED: CHOLESTYRAMINE/ASPARTAME 4 GM PACKET PO ONE (15:30)
--- NOTE | 2016-12-07 15:40 | PDOC PROGRESS REPORT ---
Subjective Progress Note for:: 12/07/16 Subjective:: Patient is currently doing fair patient's CT abdomen and pelvis was done and will nothing acute finding. Patient still have a persistent elevated white count patient's his chest x-ray shows some bilateral pleural effusions possible underlying atelectasis versus pneumonia. Patient's CT scan so some large sided effusions the left side. Patient's denied any cough no congestions denied any shortness of the breath Physical Exam Vital Signs: Temp Pulse Resp BP Pulse Ox 98.3 F 92 19 127/72 H 99 12/07/16 11:54 12/07/16 11:54 12/07/16 11:54 12/07/16 11:54 12/07/16 11:54 Intake & Output 12/06/16 12/07/16 12/08/16 06:59 06:59 06:59 Intake Total 1860 2502 50 Output Total 750 300 400 Balance 1110 2202 -350 Weight 55.7 kg General appearance: PRESENT: no acute distress, well-developed, well-nourished Head exam: PRESENT: atraumatic, normocephalic Eye exam: PRESENT: conjunctiva pink, EOMI, PERRLA. ABSENT: scleral icterus Ear exam: PRESENT: normal external ear exam Mouth exam: PRESENT: moist, tongue midline Neck exam: PRESENT: full ROM. ABSENT: carotid bruit, JVD, lymphadenopathy, thyromegaly Respiratory exam: PRESENT: clear to auscultation eulogio Cardiovascular exam: PRESENT: RRR. ABSENT: diastolic murmur, rubs, systolic murmur Pulses: PRESENT: normal dorsalis pedis pul, +2 pedal pulses bilateral Vascular exam: PRESENT: normal capillary refill GI/Abdominal exam: PRESENT: normal bowel sounds, soft Rectal exam: PRESENT: deferred Neurological exam: PRESENT: alert, awake, oriented to person, oriented to place , oriented to time, oriented to situation, CN II-XII grossly intact. ABSENT: motor sensory deficit Psychiatric exam: PRESENT: appropriate affect, normal mood. ABSENT: homicidal ideation, suicidal ideation Skin exam: PRESENT: dry, intact, warm. ABSENT: cyanosis, rash Results Laboratory Results: 12/07/16 05:00 12/07/16 05:00 12/07/16 12/07/16 05:00 05:00 WBC 16.3 H RBC 4.00 Hgb 12.7 Hct 36.9 MCV 92 MCH 31.7 MCHC 34.4 RDW 14.5 H Plt Count 338 Seg Neutrophils % 84.1 H Lymphocytes % 7.7 L Monocytes % 7.5 Eosinophils % 0.4 Basophils % 0.3 Absolute Neutrophils 13.7 H Absolute Lymphocytes 1.3 Absolute Monocytes 1.2 Absolute Eosinophils 0.1 Absolute Basophils 0.1 Sodium 144.8 Potassium 3.4 L Chloride 104 Carbon Dioxide 30 Anion Gap 11 BUN 7 Creatinine 0.56 Est GFR ( Amer) > 60 Est GFR (Non-Af Amer) > 60 Glucose 110 Calcium 7.4 L 12/07/16 05:00 NT-Pro-B Natriuret Pep 5860 H Impressions: KUB X-Ray 12/01/16 00:59 IMPRESSION: Postoperative ileus. Abdomen/Pelvis CT 12/06/16 00:00 IMPRESSION: 1. POSTOPERATIVE CHANGES. VERY MINIMAL FREE FLUID. NO FOCAL FLUID COLLECTION TO SUGGEST POSTOPERATIVE ABSCESS. 2. DILATED SMALL BOWEL, PRESUMABLY DUE TO POSTOPERATIVE ADYNAMIC ILEUS. 3. SMALL CORTICAL CYST IN THE RIGHT KIDNEY. 4. LARGE PLEURAL EFFUSIONS, RIGHT GREATER THAN LEFT. DENSITIES IN THE LUNG BASES PROBABLY DUE TO COMPRESSIVE ATELECTASIS ALTHOUGH PNEUMONIA CANNOT BE EXCLUDED. 5. OTHER CHRONIC FINDINGS ABOVE ARE STABLE AND UNCHANGED. Chest X-Ray 12/07/16 06:50 IMPRESSION: Bilateral small pleural effusions with bibasilar airspace disease atelectasis versus pneumonia. These findings are similar compared to 12/06/2016 and new compared to 08/10/2016 Assessment & Plan - Diagnosis (1) Acute appendicitis with perforation and peritoneal abscess Is this a current diagnosis for this admission?: YesPlan: Currently stable with the continues antibiotic (2) Sepsis Qualifiers: Sepsis type: sepsis due to unspecified organism Qualified Code(s): A41.9 - Sepsis, unspecified organism Is this a current diagnosis for this admission?: YesPlan: Continues IV antibiotic (3) Chronic obstructive pulmonary disease Qualifiers: Emphysema type: unspecified Is this a current diagnosis for this admission?: YesPlan: Continues to DuoNeb nebulizer and incentive spirometry and patient is already on antibiotic (4) Hypertension Qualifiers: Hypertension type: essential hypertension Qualified Code(s): I10 - Essential (primary) hypertension Is this a current diagnosis for this admission?: YesPlan: Currently stable (5) Osteoarthritis Qualifiers: Osteoarthritis location: unspecified site Is this a current diagnosis for this admission?: Yes (7) Hypotension Qualifiers: Hypotension type: unspecified hypotension type Qualified Code(s): I95.9 - Hypotension, unspecified Is this a current diagnosis for this admission?: Yes (8) Acute renal failure Qualifiers: Acute renal failure type: unspecified Qualified Code(s): N17.9 - Acute kidney failure, unspecified Is this a current diagnosis for this admission?: YesPlan: All resolving from the sepsis still low potassiums replaced k rider (9) Pleural effusion Is this a current diagnosis for this admission?: YesPlan: We will currently stop the IV fluid given 1 dose of the Lasix and the most likely underlying atelectasis may be possible pneumonia will get the echocardiogram with the elevated NT BNP. - Time Time Spent with patient: 15-24 minutes Medications reviewed and adjusted accordingly: Yes Anticipated discharge: Home Within: Other - Inpatient Certification Medical Necessity: Significant Comorbidiites Make Outpatient Treatment Too Risky , Need For IV Fluids Post Hospital Care: D/C Wet Process Assistant Head Miller Documentation - Plan Summary Plan Summary: Patient have a one episode of the loose stools will check the stool for C. difficile they may be contributed the patient's elevated white counts and consider to continues to current other medications follow with the surgery
[2016-12-07] MEDS: LACTOBACILLUS ACIDOPHILUS 250 MG TAB PO SCH (18:21)
--- NOTE | 2016-12-07 19:47 | XCELERA REPORT ---
[address] [address] Transthoracic Echocardiogram Report Name: ALBINA MULLER Age: 71 yrs Gender: Female : 1945 Patient Status: Inpatient Patient Location: [id number]\S\314\S\A Study Date: 12/07/2016 01:09 PM Height: 65 in Weight: 122 lb BSA: 1.6 m2 Procedure: A complete two-dimensional transthoracic echocardiogram was performed (2D, M-mode, spectral and color flow Doppler). The study was technically difficult with many images being suboptimal in quality. Reason For Study: chf Ordering Physician: PAMELA DYE Performed By: Bernadette Traylor Interpretation Summary The study was technically difficult with many images being suboptimal in quality. The left ventricular ejection fraction is preserved. There is borderline concentric left ventricular hypertrophy. Doppler measurements suggest pseudonormalized left ventricular relaxation, which is associated with grade II/IV or mild to moderate diastolic dysfunction The left ventricle is grossly normal size. Not all wall segments were well visualized. Consider additional methods to assess LVEF such as MUGA scan, CTA heart, cardiac MRI, ROBERTO, etc. if clinically indicated. The right ventricle is moderately dilated. The right ventricle appears to be hypertrophied The right ventricular systolic function is mildly reduced. The left atrial size is normal. The right atrium is mildly dilated. There is a trace amount of mitral regurgitation There is no mitral valve stenosis. No aortic regurgitation is present. There is no aortic valve stenosis There is a trace to mild amount of tricuspid regurgitation There is moderate pulmonary hypertension by echo Right ventricular systolic pressure is estimated to be elevated at 40- 50mmHg. The aortic root is not well visualized. The inferior vena cava was not well visualized There is no pericardial effusion. MMode/2D Measurements \T\ Calculations RVDd: 3.5 cm LVIDd: 4.2 cm FS: 29.6 % Ao root diam: 2.5 cm IVSd: 1.2 cm LVIDs: 2.9 cm EDV(Teich): 76.6 ml LVPWd: 0.92 cm ESV(Teich): 33.0 ml Ao root area: 4.9 cm2 EF(Teich): 57.0 % LA dimension: 2.7 cm Doppler Measurements \T\ Calculations MV E max paul: MV P1/2t max paul: Ao V2 max: LV V1 max P.0 cm/sec 75.0 cm/sec 146.8 cm/sec 8.4 mmHg MV A max paul: MV P1/2t: 77.3 msec Ao max PG: LV V1 max: 134.8 cm/sec 8.6 mmHg 145.1 cm/sec MV E/A: 0.56 MVA(P1/2t): 2.8 cm2 MV dec slope: 284.1 cm/sec2 PA V2 max: TR max paul: 110.1 cm/sec 332.6 cm/sec PA max P.8 mmHgTR max P.2 mmHg Left Ventricle The left ventricle is grossly normal size. There is borderline concentric left ventricular hypertrophy. The left ventricular ejection fraction is preserved. Consider additional methods to assess LVEF such as MUGA scan, CTA heart, cardiac MRI, ROBERTO, etc. if clinically indicated. Doppler measurements suggest pseudonormalized left ventricular relaxation, which is associated with grade II/IV or mild to moderate diastolic dysfunction. Not all wall segments were well visualized. Right Ventricle The right ventricle is moderately dilated. The right ventricle appears to be hypertrophied. The right ventricular systolic function is mildly reduced. Atria The right atrium is mildly dilated. The left atrial size is normal. Interarterial septum not well visualized and not well dopplered. Cannot comment on ASD/PFO presence. Mitral Valve There is mild mitral annular calcification. There is no mitral valve stenosis. There is a trace amount of mitral regurgitation. Aortic Valve The aortic valve is not well visualized secondary to technical limitations. There is no aortic valve stenosis. No aortic regurgitation is present. Tricuspid Valve The tricuspid valve is not well visualized secondary to technical limitations. There is no tricuspid stenosis. There is a trace to mild amount of tricuspid regurgitation. There is moderate pulmonary hypertension by echo. Right ventricular systolic pressure is estimated to be elevated at 40-50mmHg. Pulmonic Valve The pulmonic valve is not well visualized. Great Vessels The aortic root is not well visualized. The inferior vena cava was not well visualized. Effusions There is no pericardial effusion. : PAMELA DYE > Sha Davis
[2016-12-07] MEDS: IPRATROPIUM/ALBUTEROL 0.5-2.5 MG/3 ML AMPUL NEB SCH (19:48)
[2016-12-08] MEDS: IPRATROPIUM/ALBUTEROL 0.5-2.5 MG/3 ML AMPUL NEB SCH ×4 (01:54→20:01)
[2016-12-08] MEDS ORDERED: TRAMADOL HCL 50 MG TABLET PO ONE (03:30)
[2016-12-08] MEDS: PIPERACILLIN SODIUM/TAZOBACTAM 3.375 GM in NORMAL SALINE 100 ML IV SCH (05:57)
[2016-12-08 06:38] LABS: ABSOLUTE BASOPHILS # (AUTO) 0.1 10^3/uL (0.0-0.2); ABSOLUTE LYMPHOCYTES (AUTO) 1.1 10^3/uL (0.5-4.7); ABSOLUTE NEUT (AUTO) 13.5 10^3/uL (1.7-8.2); BASOPHILS % (AUTO) 0.4 % (0-2); EOSINOPHILS % (AUTO) 0.2 % (0-6); HEMATOCRIT 33.1 % (36.0-47.0); HEMOGLOBIN 10.9 g/dL (12.0-15.5); HGB HCT DIFFERENCE -0.4; LYMPHOCYTES % (AUTO) 7.1 % (13-45); MEAN CORPUSCULAR HEMOGLOBIN 30.4 pg (27.0-33.4); MEAN CORPUSCULAR HGB CONC 32.8 g/dL (32.0-36.0); MEAN CORPUSCULAR VOLUME 93 fl (80-97); MONOCYTES % (AUTO) 6.4 % (3-13); RED BLOOD COUNT 3.58 10^6/uL (3.72-5.28); RED CELL DISTRIBUTION WIDTH 14.6 % (11.5-14.0); SEGMENTED NEUTROPHILS % (AUTO) 85.9 % (42-78); WHITE BLOOD COUNT 15.8 10^3/uL (4.0-10.5)
[2016-12-08 06:55] LABS: ANION GAP 11 (5-19); BLOOD UREA NITROGEN 7 mg/dL (7-20); CALCIUM 7.2 mg/dL (8.4-10.2); CARBON DIOXIDE 28 mmol/L (22-30); CHLORIDE 104 mmol/L (98-107); CREATININE RESULT 0.54 mg/dL (0.52-1.25); GLUCOSE 68 mg/dL (75-110); POTASSIUM 3.3 mmol/L (3.6-5.0); SODIUM 142.6 mmol/L (137-145)
[2016-12-08] MEDS ORDERED: POTASSIUM CHLORIDE 10 MEQ TABLET.SA PO ONE (08:30)
[2016-12-08] MEDS: LEVOFLOXACIN 500 MG TABLET PO SCH (09:18)
[2016-12-08] MEDS: ATENOLOL 50 MG TABLET PO SCH (09:18)
[2016-12-08] MEDS: ENOXAPARIN SODIUM INJ 30 MG/0.3 ML DISP.SYRIN SUBCUT SCH (09:19)
[2016-12-08] MEDS: FAMOTIDINE INJ/PF 20 MG/2 ML SDV IV SCH ×2 (09:19→21:08)
[2016-12-08] MEDS: LACTOBACILLUS ACIDOPHILUS 250 MG TAB PO SCH ×2 (09:19→17:28)
--- NOTE | 2016-12-08 09:33 | PDOC PROGRESS REPORT ---
Subjective Progress Note for:: 12/08/16 Subjective:: Patient is currently doing much better patients is off the oxygen's in a walking the hallway without any problem. Patient have episode of this loose stool yesterday but according to the patient this is ongoing problem with IBS. Patient's denied any abdominal pain patients denied any cough or any congestions denied any shortness of the breath. Patient's otherwise doing well and echocardiogram is pretty stable EF Physical Exam Vital Signs: Temp Pulse Resp BP Pulse Ox 97.8 F 100 20 147/70 H 93 12/08/16 08:14 12/08/16 08:14 12/08/16 08:14 12/08/16 08:14 12/08/16 08:14 Intake & Output 12/07/16 12/08/16 12/09/16 06:59 06:59 06:59 Intake Total 2502 410 Output Total 300 400 Balance 2202 10 Weight 55.7 kg 56.3 kg General appearance: PRESENT: no acute distress, well-developed, well-nourished Head exam: PRESENT: atraumatic, normocephalic Eye exam: PRESENT: conjunctiva pink, EOMI, PERRLA. ABSENT: scleral icterus Ear exam: PRESENT: normal external ear exam Mouth exam: PRESENT: moist, tongue midline Neck exam: PRESENT: full ROM. ABSENT: carotid bruit, JVD, lymphadenopathy, thyromegaly Respiratory exam: PRESENT: clear to auscultation eulogio Cardiovascular exam: PRESENT: RRR. ABSENT: diastolic murmur, rubs, systolic murmur Pulses: PRESENT: normal dorsalis pedis pul, +2 pedal pulses bilateral Vascular exam: PRESENT: normal capillary refill GI/Abdominal exam: PRESENT: normal bowel sounds, soft. ABSENT: distended, guarding, mass, organolmegaly, rebound, tenderness Rectal exam: PRESENT: deferred Neurological exam: PRESENT: alert, awake, oriented to person, oriented to place , oriented to time, oriented to situation, CN II-XII grossly intact. ABSENT: motor sensory deficit Psychiatric exam: PRESENT: appropriate affect, normal mood. ABSENT: homicidal ideation, suicidal ideation Skin exam: PRESENT: dry, intact, warm. ABSENT: cyanosis, rash Results Laboratory Results: 12/08/16 05:40 12/08/16 05:40 12/08/16 12/08/16 05:40 05:40 WBC 15.8 H RBC 3.58 L Hgb 10.9 L Hct 33.1 L MCV 93 MCH 30.4 MCHC 32.8 RDW 14.6 H Plt Count 345 Seg Neutrophils % 85.9 H Lymphocytes % 7.1 L Monocytes % 6.4 Eosinophils % 0.2 Basophils % 0.4 Absolute Neutrophils 13.5 H Absolute Lymphocytes 1.1 Absolute Monocytes 1.0 Absolute Eosinophils 0.0 Absolute Basophils 0.1 Sodium 142.6 Potassium 3.3 L Chloride 104 Carbon Dioxide 28 Anion Gap 11 BUN 7 Creatinine 0.54 Est GFR ( Amer) > 60 Est GFR (Non-Af Amer) > 60 Glucose 68 L Calcium 7.2 L 12/07/16 05:00 NT-Pro-B Natriuret Pep 5860 H Impressions: KUB X-Ray 12/01/16 00:59 IMPRESSION: Postoperative ileus. Abdomen/Pelvis CT 12/06/16 00:00 IMPRESSION: 1. POSTOPERATIVE CHANGES. VERY MINIMAL FREE FLUID. NO FOCAL FLUID COLLECTION TO SUGGEST POSTOPERATIVE ABSCESS. 2. DILATED SMALL BOWEL, PRESUMABLY DUE TO POSTOPERATIVE ADYNAMIC ILEUS. 3. SMALL CORTICAL CYST IN THE RIGHT KIDNEY. 4. LARGE PLEURAL EFFUSIONS, RIGHT GREATER THAN LEFT. DENSITIES IN THE LUNG BASES PROBABLY DUE TO COMPRESSIVE ATELECTASIS ALTHOUGH PNEUMONIA CANNOT BE EXCLUDED. 5. OTHER CHRONIC FINDINGS ABOVE ARE STABLE AND UNCHANGED. Assessment & Plan - Diagnosis (1) Acute appendicitis with perforation and peritoneal abscess Is this a current diagnosis for this admission?: YesPlan: Currently stable follow with the surgery (2) Sepsis Qualifiers: Sepsis type: sepsis due to unspecified organism Qualified Code(s): A41.9 - Sepsis, unspecified organism Is this a current diagnosis for this admission?: YesPlan: Will switch the p.o. Levaquin while the patient's willing to go home very soon (3) Chronic obstructive pulmonary disease Qualifiers: Emphysema type: unspecified Is this a current diagnosis for this admission?: YesPlan: Start the patient on Advair in the nebulizer (4) Hypertension Qualifiers: Hypertension type: essential hypertension Qualified Code(s): I10 - Essential (primary) hypertension Is this a current diagnosis for this admission?: YesPlan: Restart the patient on atenolol (5) Osteoarthritis Qualifiers: Osteoarthritis location: unspecified site Is this a current diagnosis for this admission?: YesPlan: Stable (7) Hypotension Qualifiers: Hypotension type: unspecified hypotension type Qualified Code(s): I95.9 - Hypotension, unspecified Is this a current diagnosis for this admission?: Yes (8) Acute renal failure Qualifiers: Acute renal failure type: unspecified Qualified Code(s): N17.9 - Acute kidney failure, unspecified Is this a current diagnosis for this admission?: YesPlan: All resolved (9) Pleural effusion Is this a current diagnosis for this admission?: YesPlan: Is all stable will repeat the chest x-ray clinically patient looks much better I think patients probably put on the p.o. antibiotic for another 5-7 days continues to nebulizer - Time Time Spent with patient: 15-24 minutes Medications reviewed and adjusted accordingly: Yes Anticipated discharge: Home Within: Other - Inpatient Certification Medical Necessity: Need Close Monitoring Due to Risk of Patient Decompensation Post Hospital Care: D/C Integration Solution Architect Documentation - Plan Summary Plan Summary: Patient's currently stable on the medical standpoint continues to antibiotics for the surgery choice and continues to home medications and following office in 1 week. Replace the potassiums today
--- NOTE | 2016-12-08 11:13 | PROGRESS NOTE E ---
Progress Note NAME: ALBINA MULLER : 1945 AGE: 71Y DATE: 12/08/2016 ROOM: 314 SUBJECTIVE: The patient is a 71-year-old female who underwent an appendectomy with fecal soilage. She has been on antibiotics. She has been doing relatively well with the exception of an elevated white blood count that is somewhat reduced today with 16.3 yesterday and is 15.8 today. She has not been febrile. Her wounds are clean. ASSESSMENT AND PLAN: Other than the slightly elevated white blood count, patient is doing well. She is not eating very much at all. Patient urgently wants to go home. She says she does not eat much at home. She does not like the food in the hospital, et cetera. However, her oral intake is inadequate to support herself. I do not think, at this point, that she has an abscess. The CT scan was negative. Would simply send her home on antibiotics, but I cannot do that until she can have an adequate oral intake. She would not meet criteria for discharge, would come back dehydrated and malnourished. Patient is not happy with this, but I did offer her to have her family bring some food and will see how she does over the next day or so. DICTATING PHYSICIAN: KELLEN NGO M.D. [id number] PHY#: [id number] ID: [id number] JOB#: [id number] ACCT: [id number] cc: >
[2016-12-08] MEDS: FLUTICASONE/SALMETEROL DISKUS 100-50 MCG/DOSE IH SCH ×2 (11:20→21:09)
[2016-12-08] MEDS: TRAMADOL HCL 50 MG TABLET PO PRN (15:12)
--- NOTE | 2016-12-08 15:26 | PDOC CONSULTATION ---
Consultation Consult Date: 12/07/16 Attending physician:: PAMELA DYE Consult reason:: Pleural effusions bilaterally right greater than left History of Present Illness Admission Date/PCP: 12/01/16 00:53 PAMELA DYE MD History of Present Illness: ALBINA MULLER is a 71 year old female This is a 71-year-old female with a history of the chronic obstructive pulmonary disease and a chronic smoker and a history of the hypertensions and osteoarthritis basically came to the office yesterday with a complaint of abdominal pain for the last 3 days with some loss of appetite and a CT scan of the abdomen and pelvis was performed stat and so still possible appendicitis with the rupture and peritonitisAnd patient was sent to the emergency department and admitted by the surgery and underwent for the laparotomy and currently doing wellPatient's currently on the levo drip for the low blood pressures but patients denied any chest pain denied any shortness of the breath and the patient's pain is under well control Patients denied any history of the heart disease denied any history of any stroke. Patent patient denies baseline shortness of breath but admits to dyspnea on exertion this is exaggerated since her hospitalization she states she has a cough usually productive of dry phlegm but occasional clear to yellow phlegm but no hemoptysis or PPD status is unknown she has a known history of chronic lung disease as a child or adolescent she admits to post exposure to passive smoke as a child as well as an adult she herself is smoked a pack and 1/ 2-2 packs a day for the last 60 years and has not smoked cigarettes for week since she has been hospitalized. He is unaware of any occupational exposure dependent potential respiratory toxins. She has 1 dog and denies any recent travel. She denies angina-like chest pain sleeps on 1-2 pillows no PND rare nocturnal cough and no edema. She admits to snoring but denies restless sleep, admits to nocturia 1,denies unrestful sleep but complains of some daytime somnolence Past Medical History Cardiac Medical History: Denies: None, Atrial Fibrillation, Congestive Heart Failure, Coronary Artery Disease, DVT, Myocardial Infarction, Hyperlipidema, Hypertension, Peripheral Vascular Disease, Pulmonary Embolism, Heart Murmur, Other Pulmonary Medical History: Reports: Bronchitis, Chronic Obstructive Pulmonary Disease (COPD) Neurological Medical History: Denies: None, Hemorrhagic CVA, Ischemic CVA, Migraine, Multiple Sclerosis, Seizures, Other Endocrine Medical History: Denies: None, Diabetes Mellitus Type 1, Diabetes Mellitus Type 2, Gestational Diabetes, Hyperthyroidism, Hypothyroidism, Obesity, Other Renal/ Medical History: Denies: None, Chronic Kidney Disease, End Stage Renal Disease, Nephrolithiasis, Other Malignancy Medical History: Denies: None, Bone Cancer, Brain Cancer, Breast Cancer, Cervical Cancer, Colorectal Cancer, Leukemia, Liver Cancer, Lung Cancer, Lymphoma, Ovarian Cancer , Pancreatic Cancer, Renal (Kidney) Cancer, Skin Cancer, Other GI Medical History: Denies: None, Cirrhosis, Crohn's Disease, Diverticulitis, Gastroesophageal Reflux Disease, Hepatitis, Hiatal Hernia, Peptic Ulcer Disease, Ulcerative Colitis, Other Musculoskeltal Medical History: Reports: Arthritis Social History Information Source: Patient, [facility] Records Lives with: Family Smoking Status: Current Every Day Smoker Cigarettes Packs Per Day: 2 Number of Years Smokin Last Time Smoked: 7 days Passive smoke exposure as: Both Hx Prescription Drug Abuse: No Do you have pets?: Yes Have you had any respiratory illnesses as a child?: No Have you been exposed to any sick contacts recently?: No Have you had any recent respiratory illnesses?: No Have you travelled outside of [place] in the past 12 months?: No - Advance Directive Resuscitation Status: Full Code Family History Family History: Reviewed & Not Pertinent Parental Family History Reviewed: Yes Children Family History Reviewed: Yes Sibling(s) Family History Reviewed.: Yes Medication/Allergy Home Medications: Alendronate Sodium [Fosamax Inchweekly Inch 35 Mg Tablet] 35 mg PO TU 12/01/16 Aspirin [Aspirin 81 mg Chewable Tablet] 81 mg PO DAILY 12/01/16 Fluticasone/Salmeterol [Advair 100-50 Diskus 28 Dose] 1 inh IH Q12 12/01/16 Hydrochlorothiazide [Hydrodiuril 12.5 mg Capsule] 12.5 mg PO DAILY 12/01/16 Simvastatin [Zocor 20 mg Tablet] 20 mg PO QHS 12/01/16 Tramadol HCl [Ultram 50 mg Tablet] 50 mg PO BIDP PRN 12/01/16 Allergies/Adverse Reactions: No Known Allergies Allergy (Unverified 11/30/16 19:28) Physical Exam Vital Signs: Temp Pulse Resp BP Pulse Ox 98.5 F 93 19 135/72 H 95 12/07/16 07:34 12/07/16 07:34 12/07/16 07:34 12/07/16 07:34 12/07/16 07:34 Intake & Output 12/06/16 12/07/16 12/08/16 06:59 06:59 06:59 Intake Total 1860 2502 Output Total 750 300 Balance 1110 2202 Weight 55.7 kg General appearance: PRESENT: cooperative, disheveled, mild distress, well- developed, well-nourished Head exam: PRESENT: atraumatic, normocephalic Eye exam: PRESENT: conjunctiva pale, EOMI Mouth exam: PRESENT: dry mucosa, neck supple Teeth exam: PRESENT: poor dentation Respiratory exam: PRESENT: decreased breath sounds, prolonged expiratory phas, rhonchi, symmetrical, unlabored, other - Decreased breath sounds at both bases egophony right base Cardiovascular exam: PRESENT: RRR, +S1, +S2 Pulses: PRESENT: normal radial pulses GI/Abdominal exam: PRESENT: normal bowel sounds, soft. ABSENT: distended, guarding, mass, organolmegaly, rebound, tenderness Rectal exam: PRESENT: deferred Gentrourinary exam: PRESENT: indwelling catheter Musculoskeletal exam: PRESENT: normal inspection Neurological exam: PRESENT: alert, awake Psychiatric exam: PRESENT: depressed Skin exam: PRESENT: dry, warm Results Laboratory Results: 12/07/16 05:00 12/07/16 05:00 12/07/16 12/07/16 05:00 05:00 WBC 16.3 H RBC 4.00 Hgb 12.7 Hct 36.9 MCV 92 MCH 31.7 MCHC 34.4 RDW 14.5 H Plt Count 338 Seg Neutrophils % 84.1 H Lymphocytes % 7.7 L Monocytes % 7.5 Eosinophils % 0.4 Basophils % 0.3 Absolute Neutrophils 13.7 H Absolute Lymphocytes 1.3 Absolute Monocytes 1.2 Absolute Eosinophils 0.1 Absolute Basophils 0.1 Sodium 144.8 Potassium 3.4 L Chloride 104 Carbon Dioxide 30 Anion Gap 11 BUN 7 Creatinine 0.56 Est GFR ( Amer) > 60 Est GFR (Non-Af Amer) > 60 Glucose 110 Calcium 7.4 L 12/01/16 11:05 Blood Blood Culture - Final NO GROWTH IN 5 DAYS 12/01/16 09:48 Blood Blood Culture - Final NO GROWTH IN 5 DAYS Impressions: KUB X-Ray 12/01/16 00:59 IMPRESSION: Postoperative ileus. Abdomen/Pelvis CT 12/06/16 00:00 IMPRESSION: 1. POSTOPERATIVE CHANGES. VERY MINIMAL FREE FLUID. NO FOCAL FLUID COLLECTION TO SUGGEST POSTOPERATIVE ABSCESS. 2. DILATED SMALL BOWEL, PRESUMABLY DUE TO POSTOPERATIVE ADYNAMIC ILEUS. 3. SMALL CORTICAL CYST IN THE RIGHT KIDNEY. 4. LARGE PLEURAL EFFUSIONS, RIGHT GREATER THAN LEFT. DENSITIES IN THE LUNG BASES PROBABLY DUE TO COMPRESSIVE ATELECTASIS ALTHOUGH PNEUMONIA CANNOT BE EXCLUDED. 5. OTHER CHRONIC FINDINGS ABOVE ARE STABLE AND UNCHANGED. Chest X-Ray 12/07/16 06:50 IMPRESSION: Bilateral small pleural effusions with bibasilar airspace disease atelectasis versus pneumonia. These findings are similar compared to 12/06/2016 and new compared to 08/10/2016 Assessment & Plan - Diagnosis (1) Acute appendicitis with perforation and peritoneal abscess Is this a current diagnosis for this admission?: YesPlan: As per surgery (2) Chronic obstructive pulmonary disease Qualifiers: Emphysema type: unspecified Is this a current diagnosis for this admission?: YesPlan: Continue bronchodilator therapy you have initiated (3) Pleural effusion Is this a current diagnosis for this admission?: YesPlan: Right thoracentesis cytology, cell count as well as cultures and electrolytes (4) Smoker Is this a current diagnosis for this admission?: YesPlan: Transdermal nicotine
--- NOTE | 2016-12-08 15:29 | PDOC PROGRESS REPORT ---
Subjective Progress Note for:: 12/08/16 Subjective:: Feels better still sore Physical Exam Vital Signs: Temp Pulse Resp BP Pulse Ox 97.8 F 100 20 147/70 H 93 12/08/16 08:14 12/08/16 08:14 12/08/16 08:14 12/08/16 08:14 12/08/16 08:14 Intake & Output 12/07/16 12/08/16 12/09/16 06:59 06:59 06:59 Intake Total 2502 410 Output Total 300 400 Balance 2202 10 Weight 55.7 kg 56.3 kg General appearance: PRESENT: no acute distress, cooperative, disheveled Head exam: PRESENT: atraumatic, normocephalic Eye exam: PRESENT: conjunctiva pale, EOMI Mouth exam: PRESENT: dry mucosa, neck supple Neck exam: ABSENT: carotid bruit, JVD, lymphadenopathy, thyromegaly Respiratory exam: PRESENT: decreased breath sounds, prolonged expiratory phas, rhonchi, symmetrical, unlabored, wheezes Cardiovascular exam: PRESENT: RRR, +S1, +S2 Pulses: PRESENT: normal radial pulses GI/Abdominal exam: PRESENT: hypoactive bowel sounds, tenderness, other - Surgical dressing dry and intact Rectal exam: PRESENT: deferred Gentrourinary exam: PRESENT: indwelling catheter Musculoskeletal exam: PRESENT: normal inspection Neurological exam: PRESENT: alert, awake Skin exam: PRESENT: dry, warm Results Laboratory Results: 12/08/16 05:40 12/08/16 05:40 12/08/16 12/08/16 05:40 05:40 WBC 15.8 H RBC 3.58 L Hgb 10.9 L Hct 33.1 L MCV 93 MCH 30.4 MCHC 32.8 RDW 14.6 H Plt Count 345 Seg Neutrophils % 85.9 H Lymphocytes % 7.1 L Monocytes % 6.4 Eosinophils % 0.2 Basophils % 0.4 Absolute Neutrophils 13.5 H Absolute Lymphocytes 1.1 Absolute Monocytes 1.0 Absolute Eosinophils 0.0 Absolute Basophils 0.1 Sodium 142.6 Potassium 3.3 L Chloride 104 Carbon Dioxide 28 Anion Gap 11 BUN 7 Creatinine 0.54 Est GFR ( Amer) > 60 Est GFR (Non-Af Amer) > 60 Glucose 68 L Calcium 7.2 L 12/07/16 05:00 NT-Pro-B Natriuret Pep 5860 H Impressions: KUB X-Ray 12/01/16 00:59 IMPRESSION: Postoperative ileus. Abdomen/Pelvis CT 12/06/16 00:00 IMPRESSION: 1. POSTOPERATIVE CHANGES. VERY MINIMAL FREE FLUID. NO FOCAL FLUID COLLECTION TO SUGGEST POSTOPERATIVE ABSCESS. 2. DILATED SMALL BOWEL, PRESUMABLY DUE TO POSTOPERATIVE ADYNAMIC ILEUS. 3. SMALL CORTICAL CYST IN THE RIGHT KIDNEY. 4. LARGE PLEURAL EFFUSIONS, RIGHT GREATER THAN LEFT. DENSITIES IN THE LUNG BASES PROBABLY DUE TO COMPRESSIVE ATELECTASIS ALTHOUGH PNEUMONIA CANNOT BE EXCLUDED. 5. OTHER CHRONIC FINDINGS ABOVE ARE STABLE AND UNCHANGED. Assessment & Plan - Diagnosis (1) Acute appendicitis with perforation and peritoneal abscess Is this a current diagnosis for this admission?: YesPlan: As per surgery (2) Chronic obstructive pulmonary disease Qualifiers: Emphysema type: unspecified Is this a current diagnosis for this admission?: YesPlan: Continue bronchodilator therapy you have initiated (3) Pleural effusion Is this a current diagnosis for this admission?: YesPlan: Ultrasound-guided thoracentesis within the next 24 hours until INR decrease (4) Smoker Is this a current diagnosis for this admission?: YesPlan: Transdermal nicotine
[2016-12-09] MEDS: IPRATROPIUM/ALBUTEROL 0.5-2.5 MG/3 ML AMPUL NEB SCH ×2 (02:21→08:44)
[2016-12-09 04:14] LABS: ABSOLUTE LYMPHOCYTES (AUTO) 1.2 10^3/uL (0.5-4.7); ABSOLUTE MONOCYTES (AUTO) 1.4 10^3/uL (0.1-1.4); ABSOLUTE NEUT (AUTO) 13.1 10^3/uL (1.7-8.2); BASOPHILS % (AUTO) 0.1 % (0-2); EOSINOPHILS % (AUTO) 0.2 % (0-6); HEMATOCRIT 32.3 % (36.0-47.0); HEMOGLOBIN 10.7 g/dL (12.0-15.5); HGB HCT DIFFERENCE -0.2; LYMPHOCYTES % (AUTO) 7.7 % (13-45); MEAN CORPUSCULAR HEMOGLOBIN 30.7 pg (27.0-33.4); MEAN CORPUSCULAR HGB CONC 33.1 g/dL (32.0-36.0); MEAN CORPUSCULAR VOLUME 93 fl (80-97); MONOCYTES % (AUTO) 8.6 % (3-13); RED BLOOD COUNT 3.49 10^6/uL (3.72-5.28); RED CELL DISTRIBUTION WIDTH 14.8 % (11.5-14.0); SEGMENTED NEUTROPHILS % (AUTO) 83.4 % (42-78); WHITE BLOOD COUNT 15.8 10^3/uL (4.0-10.5)
[2016-12-09 04:22] LABS: PARTIAL THROMBOPLASTIN TIME 45.3 SEC (23.5-35.8)
[2016-12-09 04:39] LABS: ANION GAP 9 (5-19); BLOOD UREA NITROGEN 8 mg/dL (7-20); CALCIUM 7.2 mg/dL (8.4-10.2); CARBON DIOXIDE 28 mmol/L (22-30); CHLORIDE 105 mmol/L (98-107); CREATININE RESULT 0.53 mg/dL (0.52-1.25); GLUCOSE 104 mg/dL (75-110); POTASSIUM 3.3 mmol/L (3.6-5.0)
[2016-12-09 09:04] VITALS: BP 75/57
[2016-12-09] MEDS: TRAMADOL HCL 50 MG TABLET PO PRN (09:22)
[2016-12-09] MEDS: ATENOLOL 50 MG TABLET PO SCH (09:22)
[2016-12-09] MEDS: FAMOTIDINE INJ/PF 20 MG/2 ML SDV IV SCH (09:23)
[2016-12-09] MEDS: LEVOFLOXACIN 500 MG TABLET PO SCH (09:23)
[2016-12-09] MEDS: LACTOBACILLUS ACIDOPHILUS 250 MG TAB PO SCH (09:23)
[2016-12-09] MEDS: ENOXAPARIN SODIUM INJ 30 MG/0.3 ML DISP.SYRIN SUBCUT SCH (09:24)
[2016-12-09] MEDS: FLUTICASONE/SALMETEROL DISKUS 100-50 MCG/DOSE IH SCH (09:24)
--- NOTE | 2016-12-09 10:29 | DISCHARGE SUMMARY E ---
Discharge Summary NAME: ALBINA MULLER : 1945 AGE: 71Y ADMITTED: 12/01/2016 DISCHARGED: 12/09/2016 ADMITTING DIAGNOSIS: Acute appendicitis, gangrenous, with localized abscess. DISCHARGE DIAGNOSIS: Acute appendicitis, gangrenous, with localized abscess, status post open appendectomy. HOSPITAL COURSE: The patient was admitted for IV antibiotic therapy, progressively doing better and better. She received almost a week of IV antibiotic therapy. Progressively she is doing very well. She underwent a laparoscopic converted to open appendectomy about a week now. She initially progressed slowly with the ileus and is now progressing very well. No fever. She had a few bowel movements. Tolerating diet. She had a small pleural effusion on the right side . As of today, the patient is feeling very well, tolerating diet, ambulating, feeling well. On examination, the abdomen is soft and nontender. All surgical incisions are clean. DISCHARGE PLAN: Medications provided. I am sending her home with Flagyl and probiotics. Follow up at office in the surgical clinic in 1 week. At the time of discharge the patient is doing very well. DICTATING PHYSICIAN: KG BARBOZA M.D. [id number] PHY#: [id number] ID: [id number] JOB#: [id number] ACCT: [id number] cc:KG BARBOZA M.D. E. GROUP, > [facility]
== END 2016-12-09 10:30 | disposition home or self-care (01) | DRG 338 ==
LOC: ER 18:28 → UNDOADMIN 19:29 → EH 19:29 → 4N 12-01 01:25 → EH 12-01 01:25 → 4N 12-01 02:32 → ICU 12-01 02:32 → 3W 12-02 17:25
PROVIDERS: ATTEND Surgery
PROC: 0DTJ0ZZ Resection of Appendix, Open Approach (ICD-10-PCS; principal; 2016-11-30 21:00)
DX: K35.3 Acute appendicitis with localized peritonitis (principal); A41.9 Sepsis, unspecified organism; N17.9 Acute kidney failure, unspecified; J90 Pleural effusion, not elsewhere classified; E87.6 Hypokalemia; J44.9 Chronic obstructive pulmonary disease, unspecified; I10 Essential (primary) hypertension; M19.90 Unspecified osteoarthritis, unspecified site; M81.0 Age-related osteoporosis without current pathological fracture; E55.9 Vitamin D deficiency, unspecified; Z79.82 Long term (current) use of aspirin; Z79.899 Other long term (current) drug therapy; F17.210 Nicotine dependence, cigarettes, uncomplicated
CPT/HCPCS: 00840; 36415; 71010; 71020; 74000; 74177; 80048; 80053; 82962; 83690; 83735; 83880; 85025; 85610; 85730; 86850; 86900; 86901; 87040; 87045; 87070; 87075; 87077; 87186; 87205; 87493; 88304; 93005; 93010; 93306; 99285; G8978-GP; G8979-GP; J0131; J0330; J1100; J1335; J1650; J1940; J2250; J2270; J2370; J2405; J2543; J2704; J3010; J3480; J3490; J7030; J7060; J7620; S0028

== ENCOUNTER → 2016-11-30 | Outpatient (CLI) | payer MEDICARE, OTHER ==
[~2016-11-30] MED LIST: ALBUTEROL SULFATE 0.083% NEB 2.5 MG/3 ML AMPUL NEB PRN; DEXTROSE 40% GEL 15 GM TUBE PO PRN; DEXTROSE 50%-WATER 25 GM/50 ML DISP.SYRIN IV PRN; ENOXAPARIN SODIUM INJ 30 MG/0.3 ML DISP.SYRIN SUBCUT SCH; FAMOTIDINE INJ/PF 20 MG/2 ML SDV IV SCH; GLUCAGON,HUMAN RECOMB 1 MG INJ SUBCUT PRN; MORPHINE SULFATE 10 MG/ML INJ IV PRN; NORMAL SALINE 1000 ML 1,000 ML IV PRN; ONDANSETRON HCL INJ/PF 4 MG/2 ML SDV IV PRN; PHARMACY COMMUNICATION ORDER MC NR
[2016-11-30 18:43] LABS: HEMATOCRIT 43.4 % (36.0-47.0); HEMOGLOBIN 14.9 g/dL (12.0-15.5); HGB HCT DIFFERENCE 1.3; MEAN CORPUSCULAR HEMOGLOBIN 31.7 pg (27.0-33.4); MEAN CORPUSCULAR HGB CONC 34.5 g/dL (32.0-36.0); MEAN CORPUSCULAR VOLUME 92 fl (80-97); RED BLOOD COUNT 4.72 10^6/uL (3.72-5.28); RED CELL DISTRIBUTION WIDTH 14.4 % (11.5-14.0); WHITE BLOOD COUNT 14.6 10^3/uL (4.0-10.5)
--- NOTE | 2016-11-30 19:09 | PDOC H&P ---
History of Present Illness Admission Date/PCP: BAR MARQUEZ Patient complains of: Abdominal pain History of Present Illness: ALBINA MULLER is a 71 year old female Who has had the right lower quadrant abdominal pain for the last 3 days. The pain has been persistent. Along with anorexia no fever no emesis. Patient has not had a bowel movement since the pain began. She has had a colonoscopy in the remote past perhaps over 10 years ago. She had up polyp that was removed at that time. She has had no recent bowel habit changes preceding her abdominal pain. There is no family history of colon cancer. She denies any prior history of right lower quadrant abdominal pain. Past Medical History Cardiac Medical History: Reports: None Pulmonary Medical History: Reports: Chronic Obstructive Pulmonary Disease (COPD) Neurological Medical History: Reports: None Endocrine Medical History: Reports: None Malignancy Medical History: Reports: None GI Medical History: Reports: None Past Surgical History Past Surgical History: Reports: Other - Hip replacement last year. Apparently did very well. Social History Information Source: Patient Smoking Status: Current Every Day Smoker Frequency of Alcohol Use: Rare Hx Recreational Drug Use: No Family History Family History: None - No history of colon malignancies Parental Family History Reviewed: No Children Family History Reviewed: No Sibling(s) Family History Reviewed.: No Physical Exam General appearance: PRESENT: no acute distress, cooperative Eye exam: PRESENT: other - Anicteric Neck exam: PRESENT: other - Supple with no tenderness Respiratory exam: PRESENT: clear to auscultation eulogio Cardiovascular exam: PRESENT: RRR GI/Abdominal exam: PRESENT: other - Soft, nondistended, focal tenderness to palpation the right lower quadrant with the guarding Extremities exam: PRESENT: other - No swelling and no edema. Neurological exam: PRESENT: alert, oriented to person, oriented to place, oriented to time, oriented to situation Psychiatric exam: PRESENT: appropriate affect Results Laboratory Results: 11/30/16 17:39 Seg Neutrophils % Not Reportable Lymphocytes % Not Reportable Monocytes % Not Reportable Eosinophils % Not Reportable Basophils % Not Reportable Absolute Neutrophils Not Reportable Absolute Lymphocytes Not Reportable Absolute Monocytes Not Reportable Absolute Eosinophils Not Reportable Absolute Basophils Not Reportable Impressions: Abdomen/Pelvis CT 11/30/16 16:23 IMPRESSION: 1. FINDINGS OF ACUTE APPENDICITIS WITH PERFORATED APPENDIX AND DEVELOPING PERIAPPENDICEAL ABSCESS. THERE IS FREE FLUID IN THE DEPENDENT PORTION OF THE PELVIS AND A SMALL AMOUNT OF FREE AIR IS PRESENT IN THE RIGHT UPPER QUADRANT. 2. DILATED SMALL BOWEL PROBABLY SECONDARY TO GENERAL ILEUS DUE TO INFLAMMATORY PROCESS FROM THE APPENDICITIS. MECHANICAL OBSTRUCTION PROBABLY LESS LIKELY. 3. NO OTHER SIGNIFICANT FINDINGS. INCIDENTAL CORTICAL CYST IN THE RIGHT KIDNEY. Assessment & Plan - Diagnosis (1) Acute appendicitis with perforation and peritoneal abscess Is this a current diagnosis for this admission?: YesPlan: Plan hand-assisted laparoscopic appendectomy possible open appendectomy. I have discussed with the patient the risk and benefits of the procedure including risk of mistaken diagnosis, risk of adjacent organ injury, bleeding, infection, sepsis, mistaken diagnosis, cardiopulmonary complications and even possibility of the partial colon resection and colostomy. Patient understands and agrees to proceed.
[2016-11-30 19:10] LABS: ALANINE AMINOTRANSFERASE 21 U/L (9-52); ALBUMIN 3.7 g/dL (3.5-5.0); ALKALINE PHOSPHATASE 65 U/L (38-126); ASPARTATE AMINO TRANSFERASE 23 U/L (14-36); BILIRUBIN,DIRECT 0.5 mg/dL (0.0-0.4); BILIRUBIN,TOTAL 0.8 mg/dL (0.2-1.3); BLOOD UREA NITROGEN 91 mg/dL (7-20); CALCIUM 10.7 mg/dL (8.4-10.2); CARBON DIOXIDE 25 mmol/L (22-30); CHLORIDE 88 mmol/L (98-107); GLUCOSE 86 mg/dL (75-110); LIPASE 130.2 U/L (23-300); POTASSIUM 3.8 mmol/L (3.6-5.0); SODIUM 137.1 mmol/L (137-145); TOTAL PROTEIN 7.2 g/dL (6.3-8.2)
[2016-11-30 19:26] LABS: CREATININE RESULT 2.61 mg/dL (0.52-1.25)
[2016-11-30 19:30] LABS: ANION GAP 24 (5-19)
[2016-11-30 19:49] LABS: BASOPHILS % (MANUAL) 0 % (0-2); EOSINOPHILS % (MANUAL) 0 % (0-6); LYMPHOCYTES % (MANUAL) 9 % (13-45); NUCLEATED RED BLOOD CELLS 1 /100 WBC (0); TOTAL CELLS COUNTED 100
[2016-11-30 19:50] LABS: ANISOCYTOSIS SLIGHT; PLATELET CLUMPS PRESENT; POLYCHROMASIA SLIGHT; TOXIC GRANULATION 1+; TOXIC VACUOLATION PRESENT
[2016-11-30 19:51] LABS: BAND NEUTROPHILS % (MANUAL) 11 % (3-5)
--- NOTE | 2016-11-30 23:54 | Operative Report ---
Operative Report DATE OF SURGERY: 11/30/16 PREOPERATIVE DIAGNOSIS: Perforated appendicitis POSTOPERATIVE DIAGNOSIS: Perforated appendicitis, diffuse peritonitis OPERATION: Hand-assisted laparoscopic appendectomy. Peritoneal cavity washout. SURGEON: CLAUDE MARSHALL ANESTHESIA: GA TISSUE REMOVED OR ALTERED: Appendix. Pus sent for Gram stain and culture. COMPLICATIONS: None ESTIMATED BLOOD LOSS: 50 mL INTRAOPERATIVE FINDINGS: Perforated appendix with diffuse peritonitis. PROCEDURE: Informed consent was obtained. Patient was brought to the operating room and placed on the operating room table in the supine position. After satisfactory induction of general anesthesia patient's abdomen was prepped and draped in in the usual sterile fashion. A infraumbilical midline incision was made dissection carried out through the fascia and the peritoneal cavity was entered without difficulty. A laparoscopic hand port was inserted. Pneumoperitoneum produced via a Fisher trocar through the laparoscopic hand port. A 5 mm trocar was placed in the mid upper abdomen. Another 5 mm trocar was placed in the right lateral abdomen. There was copious amount of pus throughout the entire peritoneal cavity. The appendix was visualized and the gently teased away from the surrounding adhesions revealing a perforation in the appendix. A plane was created between the meso appendix and the appendix at the cecal junction. The mesial appendix was taken using a vascular load of the Endo JENI stapling device. The appendix was taken along with a ellipse of cecum using the Endo JENI stapling device to make sure of a healthy stump. The stump closure appeared secure. Hemostasis appeared excellent. Copious amount of irrigation was used to irrigate the entire peritoneal cavity. Until the irrigation fluid that was aspirated was clear. There were adhesions between the liver and anterior abdominal wall which were bluntly teased apart to allow irrigation at the perihepatic region. Pelvic adhesions were also teased apart to allow irrigation of the pelvis and the cul-de-sac. Irrigation was also performed along the left paracolic gutter and the left upper quadrant. Attempt was made to aspirate all of the irrigation fluid. Hemostasis appeared excellent. Trochars were removed under the direct vision of the laparoscope to ensure hemostasis. Sponge needle and instrument counts were all correct. The hand port fascial defect was closed with running PDS suture. All skin incisions were closed with lorin the hand port the skin incision site was loosely closed and the packed with gauze in between the lorin. Marcaine was injected at the operative sites. Patient tolerated procedure well with no apparent complications and was taken to the recovery area in stable condition.
[2016-12-01 06:49] LABS: ANION GAP 16 (5-19); BLOOD UREA NITROGEN 74 mg/dL (7-20); CALCIUM 8.7 mg/dL (8.4-10.2); CARBON DIOXIDE 20 mmol/L (22-30); CHLORIDE 100 mmol/L (98-107); CREATININE RESULT 1.68 mg/dL (0.52-1.25); GLUCOSE 98 mg/dL (75-110); POTASSIUM 3.4 mmol/L (3.6-5.0); SODIUM 135.9 mmol/L (137-145)
[2016-12-01 19:53] LABS: PATH REVIEW PATHOLOGIST REVIEWED
== END ==
LOC: RAD 16:04
PROVIDERS: ATTEND Physician Assistant
DX: R10.30 Lower abdominal pain, unspecified (principal); K35.80 Unspecified acute appendicitis
CPT/HCPCS: 36415; 74177; 80048; 80053; 83690; 85025

== ENCOUNTER → 2016-12-13 | Outpatient (CLI) | payer MEDICARE, OTHER | LOC: OD 13:55 | PROVIDERS: ATTEND Physician Assistant | DX: J90 Pleural effusion, not elsewhere classified (principal) | CPT/HCPCS: 71020 ==

== ENCOUNTER → 2016-12-29 | Outpatient (CLI) | payer MEDICARE, OTHER ==
--- NOTE | 2016-12-29 15:53 | RADIOLOGY REPORT (SQ) ---
EXAM DESCRIPTION: CHEST PA/LATERAL COMPLETED DATE/TIME: 12/29/2016 2:28 pm REASON FOR STUDY: PLEURAL EFFUSION COMPARISON: 12/13/2016 EXAM PARAMETERS: NUMBER OF VIEWS: two views TECHNIQUE: Digital Frontal and Lateral radiographic views of the chest acquired. RADIATION DOSE: NA LIMITATIONS: none FINDINGS: LUNGS AND PLEURA: Mild chronic interstitial changes are present. The lungs are slightly h yperexpanded. There is now no pleural effusion and no infiltrate in either lung base. MEDIASTINUM AND HILAR STRUCTURES: No masses or contour abnormalities. HEART AND VASCULAR STRUCTURES: Heart normal size. No evidence for failure. BONES: No acute findings. HARDWARE: None in the chest. OTHER: No other significant finding. IMPRESSION: Chronic lung changes with no acute cardiopulmonary disease. TECHNICAL DOCUMENTATION: JOB ID: [id number] [employer]- All Rights Reserved
== END ==
LOC: OD 14:17
PROVIDERS: ATTEND Physician Assistant
DX: J90 Pleural effusion, not elsewhere classified (principal)
CPT/HCPCS: 71020

== ENCOUNTER → 2017-01-31 | Outpatient (CLI) | payer MEDICARE, OTHER ==
--- NOTE | 2017-01-31 14:30 | RADIOLOGY REPORT (SQ) ---
EXAM DESCRIPTION: VENOUS BILATERAL LOWER COMPLETED DATE/TIME: 01/31/2017 2:08 pm REASON FOR STUDY: BLE EDEMA R60.0 LOCALIZED EDEMA COMPARISON: None. TECHNIQUE: Dynamic and static aguilar scale and color images acquired of both lower extremity venous sy stems. Selected spectral images acquired with additional compression and augmentation maneuvers. Imag es stored on PACS. LIMITATIONS: None. FINDINGS: RIGHT LEG COMMON FEMORAL AND FEMORAL: Normal phasicity, compression and augmentation. No visualized echogenic m aterial on aguilar scale. No defects on color images. POPLITEAL: Normal compression and augmentation. No visualized echogenic material on aguilar scale. No de fects on color images. CALF VESSELS: Normal compression and augmentation. No visualized echogenic material on aguilar scale. No defects on color image. GSV AND SSV: Normal compression. No visualized echogenic material on aguilar scale. No defects on color images. ANY DEEP VENOUS INSUFFICIENCY: Not evaluated. ANY EVIDENCE OF POPLITEAL CYST: No. OTHER: No other significant finding. LEFT LEG COMMON FEMORAL AND FEMORAL: Normal phasicity, compression and augmentation. No visualized echogenic m aterial on aguilar scale. No defects on color images. POPLITEAL: Normal compression and augmentation. No visualized echogenic material on aguilar scale. No de fects on color images. CALF VESSELS: Normal compression and augmentation. No visualized echogenic material on aguilar scale. No defects on color images. GSV AND SSV: Normal compression. No visualized echogenic material on aguilar scale. No defects on color images. ANY DEEP VENOUS INSUFFICIENCY: Not evaluated. ANY EVIDENCE POPLITEAL CYST: No. OTHER: No other significant finding. IMPRESSION: NO EVIDENCE DVT OR SVT IN EITHER LEG. TECHNICAL DOCUMENTATION: JOB ID: [id number] [employer]- All Rights Reserved
== END ==
LOC: SP 13:27
PROVIDERS: ATTEND Physician Assistant
DX: R60.0 Localized edema (principal)
CPT/HCPCS: 93970

== ENCOUNTER → 2017-04-17 | Outpatient (CLI) | payer MEDICARE, OTHER ==
--- NOTE | 2017-04-17 17:38 | WOMENS IMAGING REPORT ---
EXAM DESCRIPTION: 3D SCREENING MAMMO BILAT COMPLETED DATE/TIME: 04/17/2017 10:48 am REASON FOR STUDY: ROUTINE SCREENING; Z12.31 Z12.31 ENCNTR SCREEN MAMMOGRAM FOR MALIGNANT NEOPLASM O F LEIDY M81.0 AGE-RELATED OSTEOPOROSIS W/O CURRENT PATHOLOGICAL FRAC COMPARISON: Multiple since 2008 TECHNIQUE: Standard craniocaudal and mediolateral oblique views of each breast recorded using digita l acquisition and breast tomosynthesis. LIMITATIONS: None. FINDINGS: Findings present which are benign by mammographic criteria. No suspicious masses, calcifi cations or architectural distortion. Pertinent benign findings: Stable benign bilateral breast parenchymal calcifications Read with the assistance of CAD. .[facility] - R2 Cenova Version 1.3 .[facility] - R2 Cenova Version 1.3 .[facility] - R2 Cenova Version 2.4 .[facility] - R2 Cenova Version 2.4 .[facility] - R2 Development Eng Version 9.2 Benign mammographic findings may include one or more of the following: Smooth masses, popcorn/rim/co arse calcifications, asymmetries, post-procedure changes, and lesions with long-standing stability. IMPRESSION: BENIGN MAMMOGRAPHIC FINDINGS. BIRADS 2 BREAST DENSITY: b. There are scattered areas of fibroglandular density. BIRAD: 2 BENIGN FINDING(S) RECOMMENDATION: RECOMMENDATION: ROUTINE SCREENING COMMENT: The patient has been notified of the results by letter per SA requirements. Additional no tification policies are in place for contacting patient with suspicious or incomplete findings. Quality ID #[id number]: The [employer] recommends an annual screening mammogram for women aged 40 years or over. This facility utilizes a reminder system to ensure that all patients receive reminder letters, and/or direct phone calls for appointments. This includes reminders for routine scr eening mammograms, diagnostic mammograms, or other Breast Imaging Interventions when appropriate. Th is patient will be placed in the appropriate reminder system. The [employer] (ACR) has developed recommendations for screening MRI of the breast s in certain patient populations, to be used in conjunction with mammography. Breast MRI surveillanc e may be appropriate for women with more than 20% lifetime risk of developing breast cancer as deter mined by genetic testing, significant family history of the disease, or history of mantle radiation f or Hodgkins Disease. ACR Practice Guidelines 2008. DBT Technology DBT is a type of tomographic mammography. With conventional mammography, overlapping breast tissue ma y make lesions difficult to detect, even with good compression. DBT uses an x-ray tube that rotates a round the breast, taking images at different angles. These images are then combined to create thin sl ices of the breast that the radiologist can view as a 3D reconstruction. The [employer] unit can perform full-field digital mammograms (2D imaging); or DBT (3D imaging); or both, in a combination mode that quickly performs both the mammogram and the tomosynthesis scan while the breast is still compressed. PQRS 6045F: Fluoroscopic imaging is not utilized for breast tomosynthesis. TECHNICAL DOCUMENTATION: FINDING NUMBER: (1) ASSESSMENT: (1) JOB ID: [id number] [employer]- All Rights Reserved
--- NOTE | 2017-04-19 16:50 | WOMENS IMAGING REPORT ---
EXAM DESCRIPTION: BONE DENSITY HIP/SPINE COMPLETED DATE/TIME: 04/19/2017 4:08 pm REASON FOR STUDY: AGE-RELATED OSTEOPROSIS; M81.0 Z12.31 ENCNTR SCREEN MAMMOGRAM FOR MALIGNANT NEOPL ASM OF LEIDY M81.0 AGE-RELATED OSTEOPOROSIS W/O CURRENT PATHOLOGICAL FRAC COMPARISON: 2002, 2006, 2009, 2013 TECHNIQUE: Dual-Energy X-ray Absorptiometry (DEXA) of the AP Spine and Hip. LIMITATIONS: None. FINDINGS: LUMBAR SPINE: The bone mineral density (BMD) measured from L1-L4 in the AP projection correlates with a T-score of -0.7, which is normal as defined by the World Health Organization. This is stable compared to 2017. Please note that this does include vertebral body endplate sclerosis and bony sclerosis from facet a rthropathy. HIP: The bone mineral density (BMD) measured in the left femoral neck at the hip correlates with a T-score of -2.3, which is osteopenic as defined by the World Health Organization. Stable over the series of exams dating back to 2002 IMPRESSION: 1. LUMBAR SPINE: Normal 2. HIP: Osteopenic COMMENT: The World Health Organization defines low BMD as follows: T-score: Normal: Greater than -1.0 Osteopenia: Between -1.0 and -2.5 Osteoporosis: Less than -2.5 without fractures Established osteoporosis: Less than -2.5 with fractures In general, you may wish to consider: Diagnosis Treatment Follow-up DEXA Normal BMD Prevention 2-3 years Osteopenia Prevention/Therapy 1-2 years Osteoporosis Therapy Yearly TECHNICAL DOCUMENTATION: JOB ID: [id number] [employer]- All Rights Reserved
== END ==
LOC: WI 10:04
PROVIDERS: ATTEND Physician Assistant
DX: Z12.31 Encounter for screening mammogram for malignant neoplasm of breast (principal); M81.0 Age-related osteoporosis without current pathological fracture
CPT/HCPCS: 77063; 77080; G0202; 77067

== ENCOUNTER 2018-02-19 10:08 | Day surgery (SDC) | payer MEDICARE, OTHER ==
[~2018-02-19 10:08] MED LIST changes: -ALBUTEROL SULFATE 0.083% NEB 2.5 MG/3 ML AMPUL NEB PRN; -DEXTROSE 40% GEL 15 GM TUBE PO PRN; -DEXTROSE 50%-WATER 25 GM/50 ML DISP.SYRIN IV PRN; -ENOXAPARIN SODIUM INJ 30 MG/0.3 ML DISP.SYRIN SUBCUT SCH; -FAMOTIDINE INJ/PF 20 MG/2 ML SDV IV SCH; -GLUCAGON,HUMAN RECOMB 1 MG INJ SUBCUT PRN; +KETOROLAC TROMETHAMINE 0.45% 4 DROP/0.4 ML DROPERETTE OS PRN; +MIDAZOLAM 2 MG/2 ML INJ ONE; -MORPHINE SULFATE 10 MG/ML INJ IV PRN; -NORMAL SALINE 1000 ML 1,000 ML IV PRN; -ONDANSETRON HCL INJ/PF 4 MG/2 ML SDV IV PRN; -PHARMACY COMMUNICATION ORDER MC NR
[2018-02-19] MEDS: CYCLOPENTOLATE 0.2%/PHENYLEPHRINE 1% OPH SOLN 2 ML OS PRN ×3 (10:35→10:55)
[2018-02-19] MEDS: BESIFLOXACIN HCL 0.6% OPH SUSP 5 ML BOTTLE OS PRN ×4 (10:35→11:57)
[2018-02-19] MEDS: TETRACAINE HCL 0.5% OPH SOLN 0.6 ML DROPERETTE OS PRN ×2 (10:35→10:55)
[2018-02-19] MEDS: TROPICAMIDE 1% OPH SOLN 3 ML OS PRN ×3 (10:35→10:55)
[2018-02-19] MEDS: BUPIVACAINE HCL 0.75% INJ/PF (7.5 MG/1 ML) 10 ML SDV OS PRN ×2 (11:22)
[2018-02-19] MEDS: LIDOCAINE 4% INJ/PF (40 MG/ML) 5 ML AMPUL OS PRN ×2 (11:22)
[2018-02-19] MEDS: EPINEPHRINE INJ/PF 1 MG/1 ML AMPULE ONE ×3 (11:35→11:36)
[2018-02-19] MEDS: TRYPAN BLUE 0.06 % OPH SOLN 0.5 ML DISP.SYRIN ONE ×3 (11:36→11:38)
[2018-02-19] MEDS: LIDOCAINE 1% INJ-PF (10 MG/ML) 30 ML SDV ONE ×2 (11:37)
[2018-02-19] MEDS: CHONDR SU A NA/HYALUR INTRAOC KIT (SURGICARE) ONE ×2 (11:41)
--- NOTE | 2018-02-19 12:26 | [facility] DISCHARGE SUMMARY E ---
[facility] Discharge Summary NAME: ALBINA MULLER AGE: 72Y ADMITTED: 02/19/2018 DISCHARGED: 02/19/2018 HOSPITAL COURSE: The patient is a 72-year-old lady who underwent uneventful cataract extraction with intraocular lens implant, left eye, on 02/19/2018. She will be discharged to home. She is instructed to resume preoperative medications, to take Tylenol as needed for discomfort, to keep her eye shielded, to use Besivance, Durezol, and Ilevro at 3 p.m. and 8 p.m., and to follow up in my office in 1 day. DICTATING PHYSICIAN: MARY GARCIA M.D. [id number] PHY#: [id number] ID: [id number] JOB#: [id number] ACCT: [id number] cc:MARY GARCIA M.D. >
--- NOTE | 2018-02-19 12:26 | [facility] OPERATIVE REPORT E ---
[facility] Operative Report NAME: ALBINA MULLER AGE: 72Y DATE OF SURGERY: 02/19/2018 ROOM: PREOPERATIVE DIAGNOSIS: Mature cataract, left eye. POSTOPERATIVE DIAGNOSIS: Mature cataract, left eye. OPERATION: Complex cataract extraction with intraocular lens implant, left eye. SURGEON: MARY GARCIA M.D. ANESTHESIA: Topical with MAC. INDICATIONS FOR SURGERY: Unable to view fundus, difficulty with reading and distance vision. Best corrected visual acuity count fingers at 2 feet. Indications were complex for red reflex due to mature cataract requiring the use of Trypan blue dye. PROCEDURE: The patient was brought to the Operating Room and placed on the operative table. Following tetracaine drops, topical anesthesia was administered. This consisted of instrument wipe pledgets soaked in a solution of 4% Xylocaine mixed with 0.75% Marcaine in a 1:2 ratio. A 2 x 1 cm pledget was placed in the superior fornix. A 1 x 1 cm pledget was placed in the inferior fornix. The eye was patched shut for 5 minutes. The patch was removed. The eye was sterilely prepped and draped in the usual manner. Lid speculum was placed in the eye. The pledgets were removed. 4-0 black silk sutures were placed around the superior and the inferior rectus muscles to be used as traction. A conjunctival peritomy was made at the 10 o'clock position. Hemostasis was obtained with bipolar cautery. A posterior limbal groove was created using a crescent knife and dissected anteriorly towards the cornea. A sharp point blade was used to create a paracentesis site at the 2 o'clock position. A 2.4 mm keratome was used to enter the anterior chamber through the groove. Viscoelastic was injected into the anterior chamber. An anterior capsulotomy was performed using Utrata forceps in a capsulorrhexis fashion. Hydrodissection and hydrodelineation were performed. Phacoemulsification was performed in [id number] technique. A total of 3 minutes 53 seconds phaco time was used due to the density of the lens. Following this, the I/A unit was used to remove residual cortex. Viscoelastic was injected into the capsular bag. Intraocular lens model [id number], 24.5 diopters, serial number [id number] was placed in the capsular bag. The I/A unit was used to remove residual viscoelastic. The wound was seen to be watertight under high and low pressure, and no sutures were placed. The intraocular lens was well centered. The pressure was adjusted in the eye to normal pressure. The 4-0 black silk sutures and lid speculum were removed. The eye was shielded after Besivance drops were placed. The patient tolerated the procedure well and was sent to the Recovery Room in good condition. Following the incision, a syringe with air and Trypan blue dye was injected into the anterior chamber, injecting the air bubble first and Trypan blue dye inferior to the air bubble. DICTATING PHYSICIAN: MARY GARCIA M.D. [id number] PHY#: [id number] ID: [id number] JOB#: [id number] ACCT: [id number] cc:MARY GARCIA M.D. >
[2018-02-19] MEDS ORDERED: CHONDR SU A NA/HYALUR SOD 0.5 ML DISP.SYRIN ONE (12:42)
== END 2018-02-19 12:35 | disposition home or self-care (01) ==
LOC: SC 10:08
PROVIDERS: ATTEND Ophthalmology
DX: H25.89 Other age-related cataract (principal); H25.11 Age-related nuclear cataract, right eye; H01.002 Unspecified blepharitis right lower eyelid; H01.005 Unspecified blepharitis left lower eyelid; H40.013 Open angle with borderline findings, low risk, bilateral; I10 Essential (primary) hypertension; E78.00 Pure hypercholesterolemia, unspecified; J44.9 Chronic obstructive pulmonary disease, unspecified; F17.210 Nicotine dependence, cigarettes, uncomplicated; M81.0 Age-related osteoporosis without current pathological fracture; Z79.82 Long term (current) use of aspirin; Z79.51 Long term (current) use of inhaled steroids; Z79.891 Long term (current) use of opiate analgesic
CPT/HCPCS: 66982; V2632; J2250; J3490 ×6; A9270; J0171; 142

== ENCOUNTER 2018-03-12 09:17 | Day surgery (SDC) | payer MEDICARE, OTHER ==
[~2018-03-12 09:17] MED LIST changes: +BUPIVACAINE HCL 0.75% INJ/PF (7.5 MG/1 ML) 10 ML SDV OD PRN; +CHONDR SU A NA/HYALUR INTRAOC KIT (SURGICARE) ONE; +EPINEPHRINE INJ/PF 1 MG/1 ML AMPULE ONE; +KETOROLAC TROMETHAMINE 0.45% 4 DROP/0.4 ML DROPERETTE OD PRN; -KETOROLAC TROMETHAMINE 0.45% 4 DROP/0.4 ML DROPERETTE OS PRN; +LIDOCAINE 1% INJ-PF (10 MG/ML) 30 ML SDV ONE; +LIDOCAINE 4% INJ/PF (40 MG/ML) 5 ML AMPUL OD PRN; -MIDAZOLAM 2 MG/2 ML INJ ONE
[2018-03-12] MEDS: CYCLOPENTOLATE 0.2%/PHENYLEPHRINE 1% OPH SOLN 2 ML OD PRN ×3 (10:02→10:36)
[2018-03-12] MEDS: TROPICAMIDE 1% OPH SOLN 3 ML OD PRN ×3 (10:02→10:36)
[2018-03-12] MEDS: BESIFLOXACIN HCL 0.6% OPH SUSP 5 ML BOTTLE OD PRN ×4 (10:03→11:28)
[2018-03-12] MEDS: TETRACAINE HCL 0.5% OPH SOLN 0.6 ML DROPERETTE OD PRN ×2 (10:04→10:48)
[2018-03-12] MEDS ORDERED: FENTANYL CITRATE INJ/PF 100 MCG/2 ML AMPUL ONE (10:37)
[2018-03-12] MEDS ORDERED: MIDAZOLAM 2 MG/2 ML INJ ONE (10:37)
--- NOTE | 2018-03-12 13:05 | [facility] OPERATIVE REPORT E ---
[facility] Operative Report NAME: ALBINA MULLER AGE: 72Y DATE OF SURGERY: 03/12/2018 ROOM: PREOPERATIVE DIAGNOSIS: CATARACT, RIGHT EYE. POSTOPERATIVE DIAGNOSIS: CATARACT, RIGHT EYE. PROCEDURE PERFORMED: PHACOEMULSIFICATION WITH POSTERIOR CHAMBER INTRAOCULAR LENS, RIGHT EYE. SURGEON: MARY GARCIA MD ANESTHESIA: TOPICAL WITH MAC. INDICATIONS FOR SURGERY: Difficulty reading small print. Best corrected visual acuity 20/40. PROCEDURE: The patient was brought to the Operating Room and placed on the operative table. Following tetracaine drops, topical anesthesia was administered. This consisted of instrument wipe pledgets soaked in a solution of 4% Xylocaine mixed with 0.75% Marcaine in a 1:2 ratio. A 2 x 1 cm pledget was placed in the superior fornix. A 1 x 1 cm pledget was placed in the inferior fornix. The eye was patched shut for 5 minutes. The patch was removed. The eye was sterilely prepped and draped in the usual manner. Lid speculum was placed in the eye. The pledgets were removed. 4-0 black silk sutures were placed around the superior and the inferior rectus muscles to be used as traction. A conjunctival peritomy was made at the 10 o'clock position. Hemostasis was obtained with bipolar cautery. A posterior limbal groove was created using a crescent knife and dissected anteriorly towards the cornea. A sharp point blade was used to create a paracentesis site at the 2 o'clock position. A 2.4 mm keratome was used to enter the anterior chamber through the groove. Viscoelastic was injected into the anterior chamber. An anterior capsulotomy was performed using Utrata forceps in a capsulorrhexis fashion. Hydrodissection and hydrodelineation were performed. Phacoemulsification was performed in [id number] technique. A total of 1 minute 6 seconds phaco time was used. Following this, the I/A unit was used to remove residual cortex. Viscoelastic was injected into the capsular bag. Intraocular lens model SN60WF, 24.5 diopters, serial number [id number] was placed in the capsular bag. The I/A unit was used to remove residual viscoelastic. The wound was seen to be watertight under high and low pressure, and no sutures were placed. The intraocular lens was well centered. The pressure was adjusted in the eye to normal pressure. The 4-0 black silk sutures and lid speculum were removed. The eye was shielded after Besivance drops were placed. The patient tolerated the procedure well and was sent to the Recovery Room in good condition. DICTATING PHYSICIAN: MARY GARCIA M.D. DICTATING PHYSICIAN: MARY GARCIA M.D. [id number] PHY#: [id number] ID: [id number] JOB#: [id number] ACCT: [id number] cc:MARY GARCIA M.D. >
--- NOTE | 2018-03-12 13:10 | [facility] DISCHARGE SUMMARY E ---
[facility] Discharge Summary NAME: ALBINA MULLER AGE: 72Y ADMITTED: 03/12/2018 DISCHARGED: 03/12/2018 FINAL DIAGNOSIS: CATARACT, RIGHT EYE HOSPITAL COURSE: The patient is a 72-year-old lady who underwent uneventful cataract extraction with intraocular lens implant, right eye on 03/12/2018. She will be discharged to home. She is instructed to resume preoperative medications, take Tylenol as needed for discomfort, to keep her eye shielded, to use Besivance, Durezol and Ilevro at 3 p.m. and 8 p.m., and to follow up in my office in 1 day. DICTATING PHYSICIAN: MARY GARCIA M.D. [id number] PHY#: [id number] ID: [id number] JOB#: [id number] ACCT: [id number] cc:MARY GARCIA M.D. >
== END 2018-03-12 12:09 | disposition home or self-care (01) ==
LOC: SC 09:17
PROVIDERS: ATTEND Ophthalmology
DX: H25.11 Age-related nuclear cataract, right eye (principal); Z96.1 Presence of intraocular lens; J44.9 Chronic obstructive pulmonary disease, unspecified; Z79.51 Long term (current) use of inhaled steroids; I10 Essential (primary) hypertension; F17.210 Nicotine dependence, cigarettes, uncomplicated; Z79.82 Long term (current) use of aspirin
CPT/HCPCS: 142; J0171; J2250; J3010; J3490; V2632

== ENCOUNTER → 2018-06-10 | Outpatient (CLI) | payer MEDICARE, OTHER ==
--- NOTE | 2018-06-10 13:54 | WOMENS IMAGING REPORT ---
EXAM DESCRIPTION: 3D SCREENING MAMMO BILAT COMPLETED DATE/TIME: 06/10/2018 9:55 am REASON FOR STUDY: SCREENING MAMMO Z12.31 ENCNTR SCREEN MAMMOGRAM FOR MALIGNANT NEOPLASM OF LEIDY COMPARISON: 04/17/2017 and 06/22/2014. TECHNIQUE: Standard craniocaudal and mediolateral oblique views of each breast recorded using digita l acquisition and breast tomosynthesis. LIMITATIONS: None. FINDINGS: Findings present which are benign by mammographic criteria. No suspicious masses, calcifi cations or architectural distortion. Pertinent benign findings: Stable calcifications. Read with the assistance of CAD. .[facility] - R2 C[employer]ova Version 1.3 .[facility] Imaging - R2 Cenova Version 1.3 .[facility] Imaging - R2 Cenova Version 2.4 .[facility] - R2 Cenova Version 2.4 .[facility] - R2 Python Web Developer Version 9.2 Benign mammographic findings may include one or more of the following: Smooth masses, popcorn/rim/co arse calcifications, asymmetries, post-procedure changes, and lesions with long-standing stability. IMPRESSION: BENIGN MAMMOGRAPHIC FINDINGS. BIRADS 2 BREAST DENSITY: b. There are scattered areas of fibroglandular density. BIRAD: 2 BENIGN FINDING(S) RECOMMENDATION: RECOMMENDATION: ROUTINE SCREENING COMMENT: The patient has been notified of the results by letter per SA requirements. Additional no tification policies are in place for contacting patient with suspicious or incomplete findings. Quality ID #225: The [employer] recommends an annual screening mammogram for women aged 40 years or over. This facility utilizes a reminder system to ensure that all patients receive reminder letters, and/or direct phone calls for appointments. This includes reminders for routine scr eening mammograms, diagnostic mammograms, or other Breast Imaging Interventions when appropriate. Th is patient will be placed in the appropriate reminder system. The [employer] (ACR) has developed recommendations for screening MRI of the breast s in certain patient populations, to be used in conjunction with mammography. Breast MRI surveillanc e may be appropriate for women with more than 20% lifetime risk of developing breast cancer as deter mined by genetic testing, significant family history of the disease, or history of mantle radiation f or Hodgkins Disease. ACR Practice Guidelines 2008. DBT Technology DBT is a type of tomographic mammography. With conventional mammography, overlapping breast tissue ma y make lesions difficult to detect, even with good compression. DBT uses an x-ray tube that rotates a round the breast, taking images at different angles. These images are then combined to create thin sl ices of the breast that the radiologist can view as a 3D reconstruction. The [employer] unit can perform full-field digital mammograms (2D imaging); or DBT (3D imaging); or both, in a combination mode that quickly performs both the mammogram and the tomosynthesis scan while the breast is still compressed. PQRS 6045F: Fluoroscopic imaging is not utilized for breast tomosynthesis. TECHNICAL DOCUMENTATION: FINDING NUMBER: (1) ASSESSMENT: (1) JOB ID: [id number] [employer]- All Rights Reserved Reading location - IP/workstation name: [email or web address]
== END ==
LOC: WI 09:22
PROVIDERS: ATTEND Family Medicine
DX: Z12.31 Encounter for screening mammogram for malignant neoplasm of breast (principal)
CPT/HCPCS: 77063; 77067

== ENCOUNTER → 2018-12-26 | Outpatient (CLI) | payer MEDICARE, OTHER ==
--- NOTE | 2018-12-26 15:18 | RADIOLOGY REPORT (SQ) ---
EXAM DESCRIPTION: FEMUR LEFT COMPLETED DATE/TIME: 12/26/2018 2:09 pm REASON FOR STUDY: PAIN IN LEFT THIGH M79.652 PAIN IN LEFT THIGH COMPARISON: None. NUMBER OF VIEWS: Two views. TECHNIQUE: Two radiographic images acquired of the left femur to include hip and knee in at least on e projection. LIMITATIONS: None. FINDINGS: MINERALIZATION: Normal. BONES: No acute fracture or dislocation. No worrisome bone lesions. Osteophyte head neck junction. SOFT TISSUES: Vascular calcification. OTHER: Joint space narrowing of the hip. 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 Femurs unremarkab le. TECHNICAL DOCUMENTATION: JOB ID: [id number] [employer]- All Rights Reserved Reading location - IP/workstation name: [email or web address]
--- NOTE | 2018-12-26 15:19 | RADIOLOGY REPORT (SQ) ---
EXAM DESCRIPTION: HIP LEFT AP/LATERAL COMPLETED DATE/TIME: 12/26/2018 2:09 pm REASON FOR STUDY: PAIN IN LEFT THIGH M79.652 PAIN IN LEFT THIGH COMPARISON: None. NUMBER OF VIEWS: Two views. TECHNIQUE: AP pelvis and additional frog-leg view of the left hip. LIMITATIONS: None. FINDINGS: MINERALIZATION: Normal. LEFT HIP: Degenerative changes. Head neck osteophyte laterally. Joint space narrowing. RIGHT HIP: Hip replacement. PUBIS AND ISCHIUM: No fracture. PELVIS: No fracture. SACRUM: No fracture or dislocation. No worrisome bone lesions. LOWER LUMBAR SPINE: No fracture or dislocation. No worrisome bone lesions. No significant disc disea se. SOFT TISSUES: No findings. OTHER: No other significant finding. 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 TECHNICAL DOCUMENTATION: JOB ID: [id number] [employer]- All Rights Reserved Reading location - IP/workstation name: [email or web address]
== END ==
LOC: OD 13:44
PROVIDERS: ATTEND Physician Assistant
DX: M79.652 Pain in left thigh (principal); M16.12 Unilateral primary osteoarthritis, left hip; Z96.641 Presence of right artificial hip joint

== ENCOUNTER → 2019-02-18 | Outpatient (CLI) | payer MEDICARE, OTHER ==
--- NOTE | 2019-02-18 13:54 | RADIOLOGY REPORT (SQ) ---
EXAM DESCRIPTION: CHEST PA/LATERAL COMPLETED DATE/TIME: 02/18/2019 1:28 pm REASON FOR STUDY: CHRONIC OBSTRUCTIVE PULMONARY DISEASE, UNSPECIFIED COMPARISON: 12/09/2016 TECHNIQUE: Frontal and lateral radiographic views of the chest acquired. NUMBER OF VIEWS: Two view. LIMITATIONS: None. FINDINGS: LUNGS AND PLEURA: No pneumothorax. No consolidation or pleural effusion. Similar chronic interstitial changes. MEDIASTINUM AND HILAR STRUCTURES: Stable. HEART AND VASCULAR STRUCTURES: Stable. BONES: No acute findings. HARDWARE: None in the chest. OTHER: No other significant finding. IMPRESSION: NO ACUTE FINDINGS. TECHNICAL DOCUMENTATION: JOB ID: [id number] 2010 [employer]- All Rights Reserved Reading location - IP/workstation name: [employer]
== END ==
LOC: OD 13:17
PROVIDERS: ATTEND Physician Assistant
DX: J44.9 Chronic obstructive pulmonary disease, unspecified (principal)
CPT/HCPCS: 71046

== ENCOUNTER → 2019-10-06 | Outpatient (CLI) | payer MEDICARE, OTHER ==
--- NOTE | 2019-10-06 10:13 | WOMENS IMAGING REPORT ---
EXAM DESCRIPTION: 3D SCREENING MAMMO BILAT COMPLETED DATE/TIME: 10/06/2019 9:50 am REASON FOR STUDY: Z12.31 ENCOUNTER FOR SCREENING MAMMOGRAM FOR MALIGNANT NEOPLASM OF BREAST Z12.31 ENCNTR SCREEN MAMMOGRAM FOR MALIGNANT NEOPLASM OF LEIDY Z78.0 ASYMPTOMATIC MENOPAUSAL STATE COMPARISON: MULTIPLE SINCE 2010 EXAM PARAMETERS: Views: Standard craniocaudal and mediolateral oblique views of each breast recorded using digital acquisition and breast tomosynthesis. Read with the assistance of CAD. .[facility] - [employer] Academic Support Coordinator Version 9.2 LIMITATIONS: None. FINDINGS: No suspicious masses, suspicious calcifications or architectural distortion. No areas of c oncern. IMPRESSION: NEGATIVE MAMMOGRAM. BIRADS 1. BREAST DENSITY: b. There are scattered areas of fibroglandular density. BIRAD: ASSESSMENT: 1 NEGATIVE RECOMMENDATION: ROUTINE SCREENING Please continue yearly bilateral screening mammography/tomosynthesis in October 2020 COMMENT: The patient has been notified of the results by letter per MQSA requirements. Additional no tification policies are in place for contacting patient with suspicious or incomplete findings. Quality ID #225: The [employer] recommends an annual screening mammogram for women aged 40 years or over. This facility utilizes a reminder system to ensure that all patients receive reminder letters, and/or direct phone calls for appointments. This includes reminders for routine scr eening mammograms, diagnostic mammograms, or other Breast Imaging Interventions when appropriate. Th is patient will be placed in the appropriate reminder system. TECHNICAL DOCUMENTATION: FINDING NUMBER: (1) ASSESSMENT: (1) JOB ID: [id number] 2010 [employer]- All Rights Reserved Reading location - IP/workstation name: [email or web address]
--- NOTE | 2019-10-06 10:16 | WOMENS IMAGING REPORT ---
EXAM DESCRIPTION: BONE DENSITY HIP/SPINE COMPLETED DATE/TIME: 10/06/2019 9:50 am REASON FOR STUDY: Z78.0 ASYMPTOMATIC MENOPAUSAL STATE Z12.31 ENCNTR SCREEN MAMMOGRAM FOR MALIGNANT NEOPLASM OF LEIDY Z78.0 ASYMPTOMATIC MENOPAUSAL STATE COMPARISON: Multiple since 2003, most recently 2017 TECHNIQUE: Dual-Energy X-ray Absorptiometry (DEXA) of the AP Spine and Hip. LIMITATIONS: None. FINDINGS: LUMBAR SPINE: The bone mineral density (BMD) measured from L1-L4 in the AP projection correlates with a T-score of -0.2, which is normal as defined by the World Health Organization. BMD Change vs Baseline: Please note that this does include vertebral body endplate sclerosis and pos terior element bony spurring which increases bone density. This is a 6% increase in bone density sin ce 2017 HIP: The bone mineral density (BMD) measured in the distal left forearm correlates with a T-score of -1.8, which is osteopenic as defined by the World Health Organization. BMD Change vs Baseline: This is stable compared to 2003 10 year Fracture Risk Assessment: Major Osteoporotic Fracture: Not available. Hip Fracture: Not available. IMPRESSION: 1. LUMBAR SPINE WHO CLASSIFICATION: Normal 2. HIP WHO CLASSIFICATION: Osteopenic OVERALL ASSESSMENT: WHO CLASSIFICATION: Osteopenic COMMENT: The World Health Organization defines low BMD as follows: T-score: Normal: Greater than -1.0 Osteopenia: Between -1.0 and -2.5 Osteoporosis: Less than -2.5 without fractures Established osteoporosis: Less than -2.5 with fractures In general, you may wish to consider: Diagnosis Treatment Follow-up DEXA Normal BMD Prevention 2-3 years Osteopenia Prevention/Therapy 1-2 years Osteoporosis Therapy Yearly TECHNICAL DOCUMENTATION: JOB ID: [id number] 2010 [employer]- All Rights Reserved Reading location - IP/workstation name: [email or web address]
== END ==
LOC: WI 09:01
PROVIDERS: ATTEND Physician Assistant
DX: Z12.31 Encounter for screening mammogram for malignant neoplasm of breast (principal); M85.88 Other specified disorders of bone density and structure, other site; Z78.0 Asymptomatic menopausal state
CPT/HCPCS: 77063; 77067; 77080